=== PATIENT | female | born 1970 | race Caucasian/White ===

== ENCOUNTER 2016-12-27 08:48 | Emergency (ER) | payer MEDICAID ==
[~2016-12-27 08:48] MED LIST: ABILIFY10 MG PO; AMBIEN10 MG PO; ATIVAN2 MG PO; CLONAZEPAM2 MG/TAB PO; CYCLOBENZAPRINE10 MG PO; HYDROCODON-ACE1 EAC6 PO; HYDROCODONE-APA1 TAB PO; MINIPRESS 5 MG C5 MG PO; PROZAC20 MG PO; TRAZODONE HCL50 MG PO; TYLENOL W/CODEI1 TAB PO; VALIUM5 MG PO; ZOFRAN8 MG PO; ZOLOFT100 MG PO
== END 2016-12-27 10:38 | disposition home or self-care (01) ==
LOC: D.ER 08:48
DX: S80.01XA Contusion of right knee, initial encounter (principal); W19.XXXA Unspecified fall, initial encounter; Y93.89 Activity, other specified; Y92.019 Unspecified place in single-family (private) house as the place of occurrence of the external cause; F17.200 Nicotine dependence, unspecified, uncomplicated

== ENCOUNTER → 2017-03-10 10:16 | Outpatient (CLI) | payer MEDICAID ==
[2016-05-12 11:27] VITALS: BMI 35.0
== END | disposition home or self-care (01) ==
LOC: D.MRI 10:16
DX: S83.231A Complex tear of medial meniscus, current injury, right knee, initial encounter (principal)

== ENCOUNTER 2017-03-24 15:54 | Emergency (ER) | payer MEDICAID ==
[2016-05-12 11:27] VITALS: BMI 35.0
[2017-03-24 16:50] LABS: BASOPHILS 0.2 % (0-2); HEMATOCRIT 44.2 % (36.0-48.0); HEMOGLOBIN 15.2 g/dL (12-16); IMMATURE GRANULOCYTES 0.3 % (0-5); LYMPHOCYTES 29.6 % (15-50); MCH 31.7 pg (26.0-34.0); MCHC 34.4 g/dL (31.0-37.0); MCV 92.3 fL (80.0-100.0); MEAN PLATELET VOLUME 10.9 fL (7.4-10.4); MONOCYTES 7.3 % (2-11); NEUTROPHILS 61.6 % (40-80); PLATELET COUNT 234 10x3/uL (130-400); RBC 4.79 10x6/uL (4.00-5.40); RDW 13.4 % (11.5-14.5); WBC 9.3 10x3/uL (4.8-10.8)
[2017-03-24 17:04] LABS: ALBUMIN 3.7 g/dL (3.4-5.0); BILIRUBIN - TOTAL 0.37 mg/dL (0.2-1.3); CALCIUM 9.3 mg/dL (8.5-10.1); CARBON DIOXIDE 26.9 mmol/L (21.0-32.0); POTASSIUM - SERUM 3.9 mmol/L (3.5-5.1); PROTEIN - SERUM 7.8 g/dL (6.4-8.2)
== END 2017-03-24 17:41 | disposition home or self-care (01) ==
LOC: D.ER 15:54
PROVIDERS: Physician Assistant
DX: B37.0 Candidal stomatitis (principal); Z87.440 Personal history of urinary (tract) infections

== ENCOUNTER 2017-04-02 20:03 | Emergency (ER) | payer MEDICAID ==
[2016-05-12 11:27] VITALS: BMI 35.0
[2017-04-02 20:45] LABS: BASOPHILS 0.2 % (0-2); EOSINOPHILS 0.3 % (0-7); HEMATOCRIT 40.6 % (36.0-48.0); HEMOGLOBIN 13.8 g/dL (12-16); IMMATURE GRANULOCYTES 0.4 % (0-5); LYMPHOCYTES 15.5 % (15-50); MCH 31.1 pg (26.0-34.0); MCV 91.4 fL (80.0-100.0); MEAN PLATELET VOLUME 11.2 fL (7.4-10.4); MONOCYTES 7.8 % (2-11); NEUTROPHILS 75.8 % (40-80); PLATELET COUNT 252 10x3/uL (130-400); RBC 4.44 10x6/uL (4.00-5.40); RDW 13.4 % (11.5-14.5); WBC 13.3 10x3/uL (4.8-10.8)
[2017-04-02 21:00] LABS: ALBUMIN 3.6 g/dL (3.4-5.0); ANION GAP 19.4 mmol/L (8-16); BILIRUBIN - TOTAL 0.47 mg/dL (0.2-1.3); CALCIUM 9.6 mg/dL (8.5-10.1); CARBON DIOXIDE 22.3 mmol/L (21.0-32.0); CREATININE - SERUM 1.1 mg/dL (0.6-1.3); POTASSIUM - SERUM 3.7 mmol/L (3.5-5.1); PROTEIN - SERUM 6.9 g/dL (6.4-8.2)
== END 2017-04-02 21:48 | disposition home or self-care (01) ==
LOC: D.ER 20:03
PROVIDERS: Family Medicine
DX: T67.5XXA Heat exhaustion, unspecified, initial encounter (principal); X58.XXXA Exposure to other specified factors, initial encounter; Y93.89 Activity, other specified; Y92.89 Other specified places as the place of occurrence of the external cause; F41.9 Anxiety disorder, unspecified; F17.200 Nicotine dependence, unspecified, uncomplicated

== ENCOUNTER 2017-04-13 16:45 | Inpatient (IN) | payer MEDICAID ==
[~2017-04-13] VITALS: Ht 172.7 cm; Wt 120.2 kg
[2017-04-13 19:09] LABS: BASOPHILS 0.3 % (0-2); EOSINOPHILS 1.5 % (0-7); HEMATOCRIT 41.5 % (36.0-48.0); HEMOGLOBIN 14.1 g/dL (12-16); IMMATURE GRANULOCYTES 0.2 % (0-5); LYMPHOCYTES 32.4 % (15-50); MCH 31.6 pg (26.0-34.0); MEAN PLATELET VOLUME 11.4 fL (7.4-10.4); MONOCYTES 9.7 % (2-11); NEUTROPHILS 55.9 % (40-80); PLATELET COUNT 243 10x3/uL (130-400); RBC 4.46 10x6/uL (4.00-5.40); RDW 13.6 % (11.5-14.5); WBC 8.9 10x3/uL (4.8-10.8)
[2017-04-13 19:26] LABS: ALBUMIN 3.4 g/dL (3.4-5.0); ALKALINE PHOSPHATASE 106 U/L (46-116); ALT (SGPT) 122 U/L (10-68); CALC OSMOLALITY 277 mosm/kg (275-300); CALCIUM 9.2 mg/dL (8.5-10.1); CARBON DIOXIDE 25.6 mmol/L (21.0-32.0); CHLORIDE - SERUM 102 mmol/L (98-107); CREATININE - SERUM 0.8 mg/dL (0.6-1.3); GLUCOSE 120 mg/dL (74-106); POTASSIUM - SERUM 3.8 mmol/L (3.5-5.1); PROTEIN - SERUM 6.9 g/dL (6.4-8.2); SODIUM 139 mmol/L (136-145); eGFR NON AFRICAN AMERICAN 82 mL/min (90-120)
[2017-04-13 19:32] LABS: UREA NITROGEN 10 mg/dL (7-18)
[2017-04-13 20:11] LABS: HCG SERUM NEGATIVE (NEGATIVE)
[2017-04-13 20:30] LABS: APPEARANCE HAZY (CLEAR); BILIRUBIN NEGATIVE (NEGATIVE); COLOR YELLOW (YELLOW); GLUCOSE NEGATIVE (NEGATIVE); KETONE NEGATIVE (NEGATIVE); LEUKOCYTE ESTERASE 2+ (NEGATIVE); NITRITE POSITIVE (NEGATIVE); PROTEIN NEGATIVE (NEGATIVE); SPECIFIC GRAVITY 1.015 (1.005-1.020); UROBILINOGEN NORMAL (NORMAL)
[2017-04-13 20:32] LABS: BACTERIA MANY /hpf (NONE SEEN); EPITHELIAL CELLS 0-5 /hpf (0-5); RED CELLS - URINE 0-5 /hpf (0-5); WHITE CELLS - URINE >50 /hpf (0-5)
[2017-04-13 22:56] VITALS: BP 133/83; Ht 172.7 cm; Wt 120.2 kg
--- NOTE | 2017-04-13 22:56 | NUR ---
RECEIVED PT VIA WC FROM ED, PT TO ROOM 1278, TRANSFERS SELF TO BED WITH NO DIFFICULTY, ADMISSION ASSESSMENT, HISTORY, AND MED REC INITIATED, IV IN LEFT FA INTACT WITH NO REDNESS OR EDEMA INFUSING VIA PUMP NS AT 50ML/HR PER MD ORDERS, SEE EMAR, SCD'S APPLIED AND WORKING PROPERLY
--- NOTE | 2017-04-13 23:30 | NUR ---
ADMITTING ASSESSMENT AND HISTORY COMPLETED, PT WILL HAVE DAUGHTER CALL TREE SURGEON REGARDING PTS MEDS SHE TAKES AT HOME, POC DISCUSSED WITH PT, PT VERBALIZES UNDERSTANDING, FRESH H20 SERVED, SPOUSE TO ROOM, BEDDING PROVIDED, BED IN LOW POSITION, SIDE RAILS X 2, CALL LIGHT IN REACH
[2017-04-14] MEDS ORDERED: DEPAKOTE250 MG PO (00:02)
[2017-04-14] MEDS ORDERED: SEROQUEL100 MG PO (00:03)
[2017-04-14] MEDS ORDERED: IMITREX50 MG PO (00:03)
--- NOTE | 2017-04-14 00:09 | NUR ---
PT VISITNG WITH SPOUSE, INFORMED PT THAT DAUGHTER CALLED REGARDING MEDS, OBTAINED LAST DOSE FROM PT, PT DENIES NEEDS AT THIS TIME
--- NOTE | 2017-04-14 00:33 | NUR ---
PT ASSISTED TO BR. PT AMBULATED WITHOUT ASSISTANCE. PT VOIDED 425 ML CLOUDY YELLOW URINE. PT DENIES ANY FURTHER NEEDS AT THIS TIME. BED IN LOW POSITION, SIDE RAILS UP TIMES 2, CALL LIGHT AND PHONE IN REACH. SO AT PT BS FOR SUPPORT AND ASSISTANCE. WILL CONT TO MONITOR PT STATUS.
--- NOTE | 2017-04-14 02:33 | NUR ---
PT RESTING WITH EYES CLOSED, RESP QUIET, NO DISTRESS NOTED, LEFT UNDISTURBED AT THIS TIME, SPOUSE ASLEEP ON COUCH
[2017-04-14 04:39] VITALS: BP 117/64
--- NOTE | 2017-04-14 04:39 | NUR ---
PT AWAKE, SCD'S REMOVED, PT UP TO BR, GAIT STEADY, VOIDED 200 MLS OF CLOUDY URINE BY SELF, REPORTS BURNING WITH VOIDING, PT BACK TO BED, SCD'S RECONNECTED AND WORKING PROPERLY, PT C/O PAIN AND SLIGHT NAUSEA, ADM ZOFRAN AND MORPHINE SIVP PER MD ORDERS, SEE EMAR, PT DENIES FURTHER NEEDS, SPOUSE AT BEDSIDE
--- NOTE | 2017-04-14 05:06 | NUR ---
SCD'S REMOVED, PT UP TO BEDSIDE SCALE, WEIGHT OBTAINED, PT BACK TO BED, SCD'S APPLIED AND WORKING PROPERLY, PT REPORTS PAIN IS "A LITTLE" BETTER, DENIES NEEDS AT THIS TIME
--- NOTE | 2017-04-14 06:40 | NUR ---
SHIFT REPORT TO DAY SHIFT
--- NOTE | 2017-04-14 07:22 | NUR ---
DR PAULSON PAGED TO NOTIFY OF ORDERED CONSULT. RETURNS PAGE IMMEDIATELY. STATES SHE WILL SEE PT AFTER CLINIC HOURS TODAY.
--- NOTE | 2017-04-14 07:30 | NUR ---
PT CURRENTLY SITTING UP IN BED EATING BREAKFAST. PAIN AND NEEDS ASSESSED. PT REPORTS HAVING RT SIDE FLANK PAIN. UNDERSTANDS IT WILL BE 2 MORE HOURS BEFORE SHE MAY HAVE ADDITIONAL PAIN MEDICATION. DENIES NEEDS AT PRESENT. PT INFORMED THIS RN WILL RETURN TO ROOM FOR SHIFT ASSESSMENT AFTER PT HAS FINISHED BREAKFAST. DENIES NEEDS AT PRESENT.
--- NOTE | 2017-04-14 08:15 | NUR ---
THIS RN RETURNS TO BEDSIDE FOR SHIFT ASSESSMENT. PT CURRENTLY RESTING QUIETLY W/LIGHTS TURNED. PAIN AND NEEDS ASSESSED. PT REPORTS FLANK PAIN 04/30 AND NOW REPORTS MIGRAINE HEADACHE 06/30. PT REQUESTING DR CATALAN BE CALLED TO SEE IF HER HOME MEDS MAY BE RESUMMED. SHIFT ASSESSMENT COMPLETED. SEE FLOWSHEET. PT HAS EATEN 100% OF BREAKFAST SERVED. DECLINES OFFERS TO BRING HER ANYTHING ADDITIONALLY TO EAT OR DRINK. PT UPDATED THAT SHE MAY NOT HAVE DEMEROL IVP AGAIN FOR ANOTHER 2 HRS. PT VERBALIZES UNDERSTANDING AND IS AGREEABLE.SIG OTHER AT BEDSIDE.
--- NOTE | 2017-04-14 08:28 | NUR ---
DR ALAYNA HERNANDEZ FOR REQUEST TO RESUME HOME MEDS AT .
--- NOTE | 2017-04-14 08:32 | NUR ---
DR CATALAN RETURNS PAGE. INFORMED THAT PT IS A PT ON L&D. REPORTS HAVING A MIGRAINE AND REQUEST TO HAVE HER HOME MEDS RESUMMED. STATES "THAT WILL BE OK."
--- NOTE | 2017-04-14 10:38 | NUR ---
DR CATALAN TO UNIT TO SEE PT. ORDERS REC'D AND NOTED TO HAVE PICC LINE PLACED. CALL DR WINTER'S OFFICE FOR RESULTS OF URINE CULTURE THAT WAS PERFORMED THERE. DR COX TO CONSULT PT AND PRESCRIBE ANTIBIOTICS. STATES " FAR I'M CONCERNED, THE PT MAY BE DISCHARGED HOME AFTER PICC LINE IS PLACED AND DR CXO HAS PRESCRIBED ANTIBIOTIC THERAPY.
--- NOTE | 2017-04-14 10:50 | NUR ---
DR WINTER'S OFFICE CALLED TO REQUEST URINE CULTURE RESULTS. RELEASE OF INFORMATION OBTAINED FROM PT THEN FAXED TO OFFICE. RESULTS OBTAINED AND PLACED ON CHART FOR DR COX TO SEE.
--- NOTE | 2017-04-14 11:23 | NUR ---
PT RINGS CALL LIGHT. Estevan CAMILO RN TO ROOM. PT ASSITED TO BR. VOIDS APPROX 500ML CLOUDY,YELLOW URINE. PT BACK TO BED.
--- NOTE | 2017-04-14 11:49 | NUR ---
THIS RN TO BEDSIDE TO INFORM PT OF CONTINUED POC. PT VERBALIZES UNDERSTANDING AND IS AGREEABLE. PT DENIES QUESTIONS OTHER THAN REPORTING SHE HAS A CT SCAN SCHEDULED TOMORROW ON HER RT KNEE AND QUESTIONS IF IT MAY BE PERFORMED WHILE SHES AN INPATIENT SINCE SHE MORE THAN LIKELY WILL STILL BE ADMITTED IN THE AM. PT INFORMED THAT REPORT WILL BE GIVEN TO NURSE ON MED2. MOST LIKELY REQUEST CAN BE FULFILLED.
--- NOTE | 2017-04-14 12:12 | NUR ---
REPORT CALLED TO KRISTY ON MED 2. PT TRANSFERED VIA W/C TO ROOM 210.
[2017-04-14 12:40] VITALS: BP 137/82
--- NOTE | 2017-04-14 12:42 | NUR ---
RECIEVED PT ON FLOOR FROM [facility]OM[facility]S ACCOMPANIED BY HER , DAUGHTER, AND GRANDDAUGHTER VIA W/C. OFFERS NO COMPLAINTS. CALL LIGHT IN REACH, BED LOW, AND SIDE RAILS X2.
--- NOTE | 2017-04-14 13:25 | NUR ---
SITTING UP IN BED FAMILY AT BEDSIDE. ORIENTED PT TO ROOM, SCD'S ON AND IV NS STARTED. CALL LIGHT IN REACH, BED LOW, AND SIDE RAILS X1. WILL CONTINUE TO MONITOR.
[2017-04-14 16:00] VITALS: BP 123/50
[2017-04-14 19:00] VITALS: BP 151/84
--- NOTE | 2017-04-14 19:35 | NUR ---
PT IN BED WITH HOB UP FOR COMFORT. WATCHING TV. AT BEDSIDE. PT IS CONFIDENTIAL. CONTACT ISOALTION FOR MDRO IN URINE. PT HAS A CT AND PICC LINE ORDERED. DAILY WEIGHT. SCD'S. ACCURATE I&O. LEFT FA NS RUNNING AT 50ML/HR. NO O2. BEDREST WITH BATHROOM PRIVLEDGES. BED IN LOWEST POSITION AND CALL LIGHT WITHIN REACH.
--- NOTE | 2017-04-14 21:46 | NUR ---
UNHOOKED PT FROM IV AND SCD'S. PT TAKEN BY HOSPITAL STAFF DOWN TO CT.
--- NOTE | 2017-04-14 22:00 | NUR ---
PT BACK IN ROOM FROM CT.
[2017-04-15] VITALS: BP 108/39
--- NOTE | 2017-04-15 01:00 | NUR ---
PT IN BED WITH HOB UP FOR COMFORT. EYES CLOSED. CHEST RISING AND FALLING. AT BEDSIDE. BED IN LOWEST POSITION AND CALL LIGHT WITHIN REACH.
--- NOTE | 2017-04-15 03:18 | NUR ---
PT IN BED WITH HOB UP FOR COMFORT. EYES CLOSED. RESP. EVEN. BED IN LOWEST POSITION AND CALL LIGHT WITHIN REACH.
[2017-04-15 04:00] VITALS: BP 129/72
--- NOTE | 2017-04-15 06:00 | NUR ---
PT RESTING WITH NO DISTRESS. EYES CLOSED. RESPS EVEN/NONLABORED. FAMILY X 1 AT BEDSIDE. MONITOR AND CPOC.
--- NOTE | 2017-04-15 08:06 | NUR ---
AM ROUNDING- RECEIVED REPORT FROM VP PRODUCT MANAGEMENT NURSE SURY. PT IS CURRENTLY LAYING IN BED ON BACK WITH EYES CLOSED RESTING. IS AT BEDSIDE WITH EYES CLOSED RESTING. IN CONTACT ISOLATION FOR E.COLI IN URINE AND MDRO IN URINE PER REPORT. ON ROOM AIR. NO MONITOR. IV SEEN TO LEFT FOREARM WITH NS RUNNING AT 50CC. NO NEED AT CURRENT TIME. WILL CONTINUE TO MONITOR AND CONTINUE WITH PLAN OF CARE.
[2017-04-15 08:24] VITALS: BP 121/54
--- NOTE | 2017-04-15 10:59 | NUR ---
PAGED DR. CLAYTON REQUESTED BY MARIANNA IN XRAY REGARDING PT HAVING CT SCAN OF KNEE. MARIANNA STATES SHE HAD CT SCHEDULED FOR OUTPATIENT FOR CT OF KNEE TODAY. WILL AWAIT CALLBACK AND CONTINUE TO MONITOR.
[2017-04-15 12:12] VITALS: BP 94/56
--- NOTE | 2017-04-15 14:33 | NUR ---
CRICKET FROM CT CALLED TO SEE ABOUT IF WE FOUND OUT FROM DR. CLAYTON ABOUT CT OF PTS KNEE TODAY. I INFORMED CRICKET THAT DR. CLAYTON WAS PAGED AND THERE HAS NOT BEEN A CALL BACK YET. CRICKET STATES OK.
--- NOTE | 2017-04-15 15:10 | NUR ---
1430- PT IS CURRENTLY LAYING IN BED ON BACK WITH EYES OPEN RESTING. FAMILY MEMBERS ARE AT BEDSIDE. PT DENIES ANY NEED AT CURRENT TIME. WILL CONTINUE TO MONITOR.
[2017-04-15 16:27] VITALS: BP 119/70
--- NOTE | 2017-04-15 18:27 | NUR ---
PT IS CURRENTLY LAYING IN BED ON BACK WITH EYES OPEN RESTING. PT DENIES ANY NEED AT CURRENT TIME. WILL CONTINUE TO MONITOR.
[2017-04-15 19:00] VITALS: BP 116/53
--- NOTE | 2017-04-15 19:00 | NUR ---
9180- YO ARMSTRONG, VASCULAR ACCESS NURSE PLACED MIDLINE CATHETER IN PT TO LEFT UPPER ARM.
--- NOTE | 2017-04-15 19:50 | NUR ---
FAMILY AT BEDSIDE TALK TO PT.
[2017-04-16] VITALS: BP 114/61
--- NOTE | 2017-04-16 04:03 | NUR ---
REST QUIETLY IN BED, EYE CLOSE, BED LOW, CALL LIGHT WITHIN REACH.
--- NOTE | 2017-04-16 07:45 | NUR ---
AM ROUNDS COMPLETED. COMMUNICATION BOARD FILLED OUT. PT RESTING QUIETLY IN BED WITH EYES CLOSED. RR NONLABORED. CL IN REACH, BED IN LOWEST, SIDE RAILS X2. WILL CHART CHECK AND CPOC.
[2017-04-16 09:18] VITALS: BP 124/84
[2017-04-16 12:35] VITALS: BP 94/56
--- NOTE | 2017-04-16 13:24 | NUR ---
TEACHING DONE TO PT ABOUT CLEAN CATCH SPECIMEN FOR NEW UA AND CULTURE. PT VOIDED AND CLEANSED SELF CORRECTLY PRIOR TO URINATION. SPECIMEN COLLECTED AND BEING SENT TO LAB. NO FURTHER NEEDS AT THIS TIME.
[2017-04-16 13:38] LABS: BASOPHILS 0.3 % (0-2); EOSINOPHILS 2.8 % (0-7); HEMATOCRIT 40.1 % (36.0-48.0); HEMOGLOBIN 13.4 g/dL (12-16); IMMATURE GRANULOCYTES 0.3 % (0-5); LYMPHOCYTES 34.4 % (15-50); MCH 31.2 pg (26.0-34.0); MCHC 33.4 g/dL (31.0-37.0); MCV 93.5 fL (80.0-100.0); MEAN PLATELET VOLUME 11.4 fL (7.4-10.4); MONOCYTES 5.7 % (2-11); NEUTROPHILS 56.5 % (40-80); PLATELET COUNT 242 10x3/uL (130-400); RBC 4.29 10x6/uL (4.00-5.40); RDW 13.8 % (11.5-14.5)
[2017-04-16 13:59] LABS: CALCIUM 8.3 mg/dL (8.5-10.1); CARBON DIOXIDE 24.9 mmol/L (21.0-32.0); CREATININE - SERUM 0.9 mg/dL (0.6-1.3); POTASSIUM - SERUM 3.9 mmol/L (3.5-5.1)
[2017-04-16 14:53] LABS: APPEARANCE CLEAR (CLEAR); BILIRUBIN NEGATIVE (NEGATIVE); COLOR YELLOW (YELLOW); GLUCOSE NEGATIVE (NEGATIVE); KETONE NEGATIVE (NEGATIVE); LEUKOCYTE ESTERASE TRACE (NEGATIVE); NITRITE NEGATIVE (NEGATIVE); PROTEIN NEGATIVE (NEGATIVE); SPECIFIC GRAVITY 1.015 (1.005-1.020); UROBILINOGEN NORMAL (NORMAL)
[2017-04-16 14:54] LABS: EPITHELIAL CELLS 0-5 /hpf (0-5)
[2017-04-16 16:27] VITALS: BP 97/61
--- NOTE | 2017-04-16 19:30 | NUR ---
REPORT RECEIVED AND CARE ASSUMED. SITTING ON SIDE OF BED, NO DISTRESS NOTED. ASSESSMENT COMPLETED PER FLOW SHEET. BED IN LOWEST POSITION, SR X2 UP, AND CALL LIGHT IN EASY REACH.
--- NOTE | 2017-04-16 21:00 | NUR ---
MORPHINE 4 MG IVP GIVEN FOR BILATERAL FLANK PAIN AT LEVEL #9.
--- NOTE | 2017-04-16 21:30 | NUR ---
CONSENT FOR HEART CATH SIGNED.
[2017-04-17] VITALS: BP 102/69
[2017-04-17 04:00] VITALS: BP 107/61
[2017-04-17 05:20] LABS: HEMATOCRIT 38.6 % (36.0-48.0); HEMOGLOBIN 13.1 g/dL (12-16); LYMPHOCYTES 31.7 % (15-50); MCH 30.9 pg (26.0-34.0); MCHC 33.9 g/dL (31.0-37.0); MEAN PLATELET VOLUME 11.2 fL (7.4-10.4); NEUTROPHILS 59.6 % (40-80); PLATELET COUNT 248 10x3/uL (130-400); RBC 4.24 10x6/uL (4.00-5.40); RDW 13.2 % (11.5-14.5); WBC 8.6 10x3/uL (4.8-10.8)
[2017-04-17 05:33] LABS: ANION GAP 15.2 mmol/L (8-16); CALCIUM 8.4 mg/dL (8.5-10.1); CARBON DIOXIDE 24.9 mmol/L (21.0-32.0); POTASSIUM - SERUM 4.1 mmol/L (3.5-5.1)
[2017-04-17 07:31] VITALS: BP 95/51
--- NOTE | 2017-04-17 07:59 | NUR ---
0715- AM ROUNDING- RECEIVED REPORT FROM DIVIDEND DEPOSIT ENTRY CLERK NURSE YO. PT IS CURRENLTY LAYING IN BED ON LEFT SIDE WITH EYES CLOSED RESTING. GUEST IS AT BEDSIDE. IN CONTACT ISOLATION FOR E.COLI IN URINE. ON ROOM AIR. NO MONITOR. IV SEEN TO LEFT UPPER ARM MIDLINE WITH 1/2NS WITH 20K+ RUNNING AT 75CC. NO NEED AT CURRENT TIME. WILL CONTINUE TO MONITOR AND CONTINUE WITH PLAN OF CARE.
--- NOTE | 2017-04-17 09:30 | NUR ---
THIS NURSE ( WELL ALL THE OTHER STAFF AND FAMILY MEMBERS THAT WERE AROUND) WITNESSED THE PATIENTS FAMILY MEMBER AT THE DESK CHEWING OUT THE NURSE, JAMIR SIEGEL, IN REGARDS TO PATIENT NOT GETTING HER IV MORPHINE. CHRISTAL TRIED MULTIPLE TIMES TO EXPLAINE THAT WITH HER SBP IN THE LOW 90'S IT WOULD NOT BE SAFE TO GIVE THE PAIN MEDICATION. THIS PARTICULAR FAMILY MEMBER HAS EXPRESSED REPETITIVELY THAT HE DID NOT CARE. STATED THAT HER BLOOD PRESSURE IS ALWAYS LOW AND SHE NEEDED HER MEDICATIONS. THE NURSE PULLED UP AND REVIEWED THE PATIENTS BLOOD PRESSURES WITH THIS FAMILY MEMBER AND HE WAS BECOMING MORE AND MORE VERBAL ABOUT HOW HE DID NOT CARE AND HE WANTED HER TO HAVE HER MORPHINE. HE EVEN STATED SEVERAL TIMES THAT SHE NEEDED TO CALL DR CATALAN AND HE WOULD TELL HER TO GIVE IT. HE WAS UNWILLING TO LISTEN TO REASON. THIS PATIENT WAS ALSO JUST GIVEN TYLENOL #3 LESS THAN AN HOUR AGO (0856) AND FLEXERIL (0855). JAMIR GRIMES WENT IN TO DISCUSS POLICY AND PATIENT SAFETY WITH THEM. JAMIR XIONG DAIRY TRUCK DRIVER HAS HAD TO BE CALLED TO ASSIST WITH ISSUE.
--- NOTE | 2017-04-17 10:04 | NUR ---
TYRESE PARK, UNIT MANGER IN PTS ROOM SPEAKING TO PT AND PTS . PREVIOUS NURSES NOTE STATES SITUATION REGARDING THIS NURSE AND PTS REGARDING PTS PAIN MEDICATION WITH SBP OF LESS THAN 100.
[2017-04-17 12:39] VITALS: BP 96/60
[2017-04-17] MEDS ORDERED: ZOSYN 3.3753.375 G1 IV (14:19)
--- NOTE | 2017-04-17 15:24 | NUR ---
Patient Name: JACINTA CROCKER Admission Status: ER Accout number: [id number] Admission Date: 04-15-2017 : 1970 Admission Diagnosis:URINARY TRACT INFECTION, SITE NOT SPECIFIED Attending: ALAYNA Current LOS: 2 Anticipated DC Date: 04-17-2017 Planned Disposition: Home with Infusion Therapy Services Primary [place] PR[place] [employer] AMY PLANNED EXTERNAL PROVIDER: [facility] Discharge Planning Comments: * Is the patient Alert and Oriented? Yes 0 * How many steps to enter\exit or inside your home? 5 0 * PCP DR. CATALAN 0 * Pharmacy [facility] IN [place] 0 * Preadmission Environment Home with Family 0 * ADLs Independent 0 * Equipment None 0 * Other Equipment NO MEDICAL EQUIPMENT PROVIDER PREFERENCE HAS USED [facility] IN THE PAST FOR INFUSION SERVICES 0 * List name and contact numbers for known caregivers / representatives who currently or will assist patient after discharge: CHRIST SYLVIE, SIGNIFICANT OTHER, 0 * Community resources currently utilized None 0 * Please name any agencies selected above. NONE 0 * Additional services required to return to the preadmission environment? No 0 * Can the patient safely return to the preadmission environment? Yes 0 * Has this patient been hospitalized within the prior 30 days at any hospital? No 0 CM RECEIVED ORDER FOR HOME IV INFUSION. ERICA REES INFORMED CM THAT PT WILL NOT REQUIRE HOME HEALTH SERVICES. CM MET WITH PT AND FAMILY IN ROOM TO DISCUSS DISCHARGE PLANNING AND NEEDS. PT REPORTS LIVING AT HOME INDEPENDENTLY WITH HER SPOUSE AND FAMILY. PT HAS NO MEDICAL EQUIPMENT AND NO OUTSIDE SERVICES ASSISTING IN THE HOME. CM DISCUSSED AVAILABILITY OF HOME HEALTH, REHAB SERVICES AND MEDICAL EQUIPMENT. PT WOULD LIKE TO GO HOME TODAY WITH IV INFUSION, HAS USED HOME [facility] IN THE PAST AND WOULD LIKE TO ARRANGE WITH THEM IF POSSIBLE, FAMILY TO BE HOME FOR DELIVERY TODAY AND DAUGHTER IS TRAINED TO PROVIDE INFUSION SERVICES WITH NO NEED FOR HOME HEALTH. SPOUSE TO TRANSPORT HOME TODAY FOR DISCHARGE. CM CALLED PT'S SEO ENGINEER CHINEDU OLIVA, , LEFT MESSAGE NOTIFYING OF NEED OF HOME IV INFUSION WITH DISCHARGE TODAY AFTER 1630 INFUSION. CM CALLED HOME [facility], , SPOKE TO DARCY WHO REPORTED THAT [facility]OSYN SHOULD BE NO PROBLEM TO HAVE DELIVERED TODAY PRIOR TO THE NEXT HOME INFUSION DUE AT 0030 HOURS. CM FAXED REFERRAL TO [facility] AT [phone]. PT NOTIFIED. BEDSIDE NURSE NOTIFIED. [facility] TO ARRANGE HOME DELIVERY OF MEDICATION TO PT'S FAMILY AT HOME TODAY SO THAT PT CAN DISCHARGE HOME AFTER HER 1630 INFUSION IN HOSPTIAL. [facility] TO CONTACT PT AND NOTIFY CM OF HOME DELIVERY ARRANGEMENT CONFIRMATION AND SCHEDULED TIME. Protective Signal Operator: Maciel Wilcox
[2017-04-17 15:46] VITALS: BP 138/73
--- NOTE | 2017-04-17 16:49 | NUR ---
CM CALLED [facility], , WAS INFORMED BY DEREK THAT PT'S MEDICATIONS HAVE BEEN APPROVED AND ARE BEING MIXED FOR HOME DELIVERY TODAY BETWEEN 1800 AND 1830 HOURS. CM NOTIFIED PT AND SPOUSE, PT REPORTS HER DAUGHTER IS HOME TO RECEIVE THE MEDICATIONS, NO FURHTER DISCHARGE NEEDS IDENTIFIED. BEDSIDE NURSE NOTIFIED. RADHA TONY, CASE MANAGEMENT
--- NOTE | 2017-04-17 18:13 | NUR ---
PT IS CURRENTLY SITTING UP IN BED LAYING ON BACK WITH EYES OPEN RESTING. IS AT BEDSIDE. WILL CONTINUE TO MONITOR.
--- NOTE | 2017-04-17 18:15 | NUR ---
1800- D/C INSTRUCTIONS EXPLAINED TO PT. D/C PAPERWORK SIGNED BY PT AND PLACED IN CHART. PRESCRIPTION FOR PAIN MEDICAITON GIVEN TO PT. PT IS AWAITING IV ANTIBIOTIC TO GET DONE (1929). WILL PASS THIS ALONG IN REPORT.
--- NOTE | 2017-04-17 19:33 | NUR ---
IV AB COMPLETED. DC PAPERWORK SIGNED WITH DAY NURSE. PT STATED UNDERSTINDING OF PAPERWORK. LAC MIDLINE FLUSHED WITH 10CC OF NS. SWAB CAP PLACED ON PORT. TO POV VIA W/C. NO DISTRESS NOTED.
== END 2017-04-17 19:35 | disposition home or self-care (01) | DRG 690 ==
LOC: OBSVTIME → D.ER 16:45 → OBSVTIME 22:08 → D.LD 22:08 → OBSVTIME 22:12 → D.M2 22:12 → D.ER 22:12 → D.M2 04-14 12:34
PROVIDERS: Emergency Medicine; Student in an Organized Health Care Education/Training Program; ADMIT Family Medicine
DX: N10 Acute pyelonephritis (principal); Z16.24 Resistance to multiple antibiotics; B96.20 Unspecified Escherichia coli [E. coli] as the cause of diseases classified elsewhere; Z87.891 Personal history of nicotine dependence; F41.9 Anxiety disorder, unspecified; F32.9 Major depressive disorder, single episode, unspecified; K58.9 Irritable bowel syndrome, unspecified

== ENCOUNTER 2017-04-20 20:51 | Emergency (ER) | payer MEDICAID ==
[2017-04-13 22:56] VITALS: BMI 39.7
[~2017-04-20 20:51] MED LIST changes: +DEPAKOTE250 MG PO; +IMITREX50 MG PO; +SEROQUEL100 MG PO; +ZOSYN 3.3753.375 G1 IV
== END 2017-04-20 21:00 | disposition left against medical advice (07) ==
LOC: D.ER 20:51
DX: Z02.9 Encounter for administrative examinations, unspecified (principal)

== ENCOUNTER 2017-04-25 17:04 | Emergency (ER) | payer MEDICAID ==
[2017-04-13 22:56] VITALS: BMI 39.7
== END 2017-04-25 18:18 | disposition home or self-care (01) ==
LOC: D.ER 17:04
DX: T82.838A Hemorrhage due to vascular prosthetic devices, implants and grafts, initial encounter (principal)

== ENCOUNTER 2017-05-07 15:44 | Emergency (ER) | payer MEDICAID ==
[2017-04-13 22:56] VITALS: BMI 39.7
[2017-05-07 16:24] LABS: BASOPHILS 0.5 % (0-2); EOSINOPHILS 4.3 % (0-7); HEMATOCRIT 41.3 % (36.0-48.0); IMMATURE GRANULOCYTES 0.2 % (0-5); LYMPHOCYTES 34.1 % (15-50); MCH 31.2 pg (26.0-34.0); MCHC 33.9 g/dL (31.0-37.0); MEAN PLATELET VOLUME 11.4 fL (7.4-10.4); MONOCYTES 8.3 % (2-11); NEUTROPHILS 52.6 % (40-80); PLATELET COUNT 256 10x3/uL (130-400); RBC 4.49 10x6/uL (4.00-5.40); RDW 13.5 % (11.5-14.5); WBC 8.8 10x3/uL (4.8-10.8)
[2017-05-07 16:38] LABS: ALBUMIN 3.4 g/dL (3.4-5.0); ANION GAP 10.9 mmol/L (8-16); BILIRUBIN - TOTAL 0.17 mg/dL (0.2-1.3); CALCIUM 8.8 mg/dL (8.5-10.1); CARBON DIOXIDE 27.8 mmol/L (21.0-32.0); POTASSIUM - SERUM 3.7 mmol/L (3.5-5.1); PROTEIN - SERUM 7.1 g/dL (6.4-8.2)
== END 2017-05-07 17:05 | disposition home or self-care (01) ==
LOC: D.ER 15:44
PROVIDERS: Emergency Medicine
DX: M54.12 Radiculopathy, cervical region (principal)

== ENCOUNTER → 2017-05-19 | Emergency (ER) | payer MEDICAID ==
[2017-04-13 22:56] VITALS: BMI 39.7
== END | disposition home or self-care (01) ==
LOC: D.ER 13:02
DX: S40.012A Contusion of left shoulder, initial encounter (principal); Y04.2XXA Assault by strike against or bumped into by another person, initial encounter; Y93.89 Activity, other specified; Y92.89 Other specified places as the place of occurrence of the external cause; M54.2 Cervicalgia

== ENCOUNTER → 2017-05-29 15:31 | Outpatient (CLI) | payer MEDICAID ==
[2017-04-13 22:56] VITALS: BMI 39.7
== END | disposition home or self-care (01) ==
LOC: D.CT 15:31
DX: N39.0 Urinary tract infection, site not specified (principal)

== ENCOUNTER 2018-01-04 14:26 | Emergency (ER) | payer MEDICAID ==
[2017-04-13 22:56] VITALS: BMI 39.7
== END 2018-01-04 17:09 | disposition home or self-care (01) ==
LOC: D.ER 14:26
DX: S70.01XA Contusion of right hip, initial encounter (principal); W01.0XXA Fall on same level from slipping, tripping and stumbling without subsequent striking against object, initial encounter; Y93.89 Activity, other specified; Y92.019 Unspecified place in single-family (private) house as the place of occurrence of the external cause; M25.551 Pain in right hip; M79.604 Pain in right leg

== ENCOUNTER 2018-01-16 19:36 | Emergency (ER) | payer MEDICAID ==
[2017-04-13 22:56] VITALS: BMI 39.7
== END 2018-01-16 21:52 | disposition home or self-care (01) ==
LOC: D.ER 19:36
DX: S93.401A Sprain of unspecified ligament of right ankle, initial encounter (principal); W19.XXXA Unspecified fall, initial encounter; Y93.89 Activity, other specified; Y92.019 Unspecified place in single-family (private) house as the place of occurrence of the external cause; M25.471 Effusion, right ankle

== ENCOUNTER 2018-01-31 14:32 | Emergency (ER) | payer MEDICAID ==
[2017-04-13 22:56] VITALS: BMI 39.7
[2018-01-31 15:28] LABS: APPEARANCE HAZY (CLEAR); BILIRUBIN NEGATIVE (NEGATIVE); COLOR YELLOW (YELLOW); GLUCOSE NEGATIVE (NEGATIVE); KETONE NEGATIVE (NEGATIVE); NITRITE NEGATIVE (NEGATIVE); PROTEIN NEGATIVE (NEGATIVE); UROBILINOGEN NORMAL (NORMAL)
[2018-01-31 15:36] LABS: RED CELLS - URINE 0-5 /hpf (0-5); WHITE CELLS - URINE >50 /hpf (0-5)
[2018-01-31 15:37] LABS: BACTERIA MODERATE /hpf (NONE SEEN); EPITHELIAL CELLS OCC /hpf (0-5)
== END 2018-01-31 16:31 | disposition home or self-care (01) ==
LOC: D.ER 14:32
PROVIDERS: Family Medicine
DX: N39.0 Urinary tract infection, site not specified (principal); R33.9 Retention of urine, unspecified

== ENCOUNTER 2018-07-18 18:39 | Emergency (ER) | payer MEDICAID ==
[~2018-07-18] VITALS: Ht 172.7 cm; Wt 101.4 kg
[2018-07-18 18:46] VITALS: Ht 172.7 cm; Wt 101.4 kg
[2018-07-18] MEDS ORDERED: LOMOTIL 2.5-0.1 EAC1 PO (18:48)
[2018-07-18] MEDS ORDERED: VALIUM10 MG PO (18:48)
[2018-07-18 19:14] LABS: BASOPHILS 0.2 % (0-2); EOSINOPHILS 1.9 % (0-7); HEMATOCRIT 43.7 % (36.0-48.0); HEMOGLOBIN 14.8 g/dL (12-16); IMMATURE GRANULOCYTES 0.3 % (0-5); LYMPHOCYTES 32.4 % (15-50); MCH 31.4 pg (26.0-34.0); MCHC 33.9 g/dL (31.0-37.0); MCV 92.8 fL (80.0-100.0); MEAN PLATELET VOLUME 11.6 fL (7.4-10.4); MONOCYTES 6.7 % (2-11); NEUTROPHILS 58.5 % (40-80); PLATELET COUNT 249 10x3/uL (130-400); RBC 4.71 10x6/uL (4.00-5.40); RDW 13.7 % (11.5-14.5); WBC 10.5 10x3/uL (4.8-10.8)
[2018-07-18 19:20] LABS: APPEARANCE CLEAR (CLEAR); BILIRUBIN NEGATIVE (NEGATIVE); COLOR YELLOW (YELLOW); GLUCOSE NEGATIVE (NEGATIVE); KETONE NEGATIVE (NEGATIVE); NITRITE NEGATIVE (NEGATIVE); PROTEIN NEGATIVE (NEGATIVE); SPECIFIC GRAVITY 1.015 (1.005-1.020); UROBILINOGEN NORMAL (NORMAL)
[2018-07-18 19:31] LABS: ALBUMIN 3.9 g/dL (3.4-5.0); ALKALINE PHOSPHATASE 107 U/L (46-116); ALT (SGPT) 36 U/L (10-68); BILIRUBIN - TOTAL 0.15 mg/dL (0.2-1.3); CALC OSMOLALITY 284 mosm/kg (275-300); CARBON DIOXIDE 21.6 mmol/L (21.0-32.0); CHLORIDE - SERUM 107 mmol/L (98-107); CREATININE - SERUM 1.1 mg/dL (0.6-1.3); GLUCOSE 120 mg/dL (74-106); POTASSIUM - SERUM 3.5 mmol/L (3.5-5.1); PROTEIN - SERUM 7.4 g/dL (6.4-8.2); SODIUM 142 mmol/L (136-145); UREA NITROGEN 14 mg/dL (7-18); eGFR NON AFRICAN AMERICAN 56 mL/min (90-120)
[2018-07-18 19:42] LABS: CKMB 4.3 U/L (0.0-3.6); CREATINE KINASE 267 UL (21-215)
[2018-07-18 22:10] VITALS: BP 108/51
== END 2018-07-18 22:12 | disposition home or self-care (01) ==
LOC: D.ER 18:39
PROVIDERS: Emergency Medicine
DX: S20.212A Contusion of left front wall of thorax, initial encounter (principal); W18.30XA Fall on same level, unspecified, initial encounter; Y93.89 Activity, other specified; Y92.019 Unspecified place in single-family (private) house as the place of occurrence of the external cause; S16.1XXA Strain of muscle, fascia and tendon at neck level, initial encounter; R51 Headache

== ENCOUNTER 2018-11-05 02:52 | Emergency (ER) | payer MEDICAID ==
[~2018-11-05] VITALS: Ht 172.7 cm; Wt 101.4 kg
[~2018-11-05 02:52] MED LIST changes: +LOMOTIL 2.5-0.1 EAC1 PO; +VALIUM10 MG PO
[2018-11-05 02:56] VITALS: Ht 172.7 cm; Wt 101.4 kg
[2018-11-05 04:05] VITALS: BP 135/80
== END 2018-11-05 04:05 | disposition home or self-care (01) ==
LOC: D.ER 02:52
DX: S50.12XA Contusion of left forearm, initial encounter (principal); W18.31XA Fall on same level due to stepping on an object, initial encounter; Y93.89 Activity, other specified; Y92.019 Unspecified place in single-family (private) house as the place of occurrence of the external cause

== ENCOUNTER 2019-01-14 07:15 | Day surgery (SDC) | payer MEDICAID ==
[2019-01-13 13:18] LABS: HEMATOCRIT 42.7 % (36.0-48.0); HEMOGLOBIN 14.7 g/dL (12-16); MCH 30.4 pg (26.0-34.0); MCHC 34.4 g/dL (31.0-37.0); MCV 88.2 fL (80.0-100.0); RBC 4.84 10x6/uL (4.00-5.40); RDW 13.4 % (11.5-14.5); WBC 9.8 10x3/uL (4.8-10.8)
[~2019-01-14 07:15] MED LIST changes: +EMGALITY SQ; +LAMOTRIGINE PO; +LITHIUM CI8 MEQ/5 ML; +PRINIVIL10 MG
[2019-01-14 09:13] VITALS: BP 120/70; BMI 35.6
[2019-01-14] MEDS ORDERED: PERCOCET 7.5/321 TAB PO (12:57)
--- NOTE | 2019-01-14 14:09 | OP ---
PATIENT NAME: JACINTA CROCKER MEDICAL RECORD: [id number] :70 LOCATION:[email or web address] ADMISSION DATE: SURGEON: ARNALDO BLAS DO DATE OF OPERATION: 01/14/2019 PROCEDURE PERFORMED: Right knee arthroscopy with medial meniscal repair and partial lateral meniscectomy. PREOPERATIVE DIAGNOSIS: Right knee meniscal tear, medial meniscus. POSTOPERATIVE DIAGNOSES: Right knee medial meniscus tear and lateral meniscal tear. INDICATIONS: Ms. Crocker is a 48-year-old female who presented to my office with right knee pain, popping, catching, and locking. She had a meniscal tear in the past and said it felt similar. She was unable to get an MRI due to, I believe, a spinal pain stimulator and due to her symptoms and her x-rays did not show really any arthritis and she had before. She had positive Raymundo's and bounce home test. I told her we would do the scope and look at meniscus and take it out or repair it depending on where the tear was. She was okay with that plan and signed the consent. She is aware of the risks including infection, bleeding, damage to nerve and vessel, need for further surgery, blood clots, and even and signed the consent. SURGEON: Arnaldo Blas DO DESCRIPTION OF PROCEDURE: The patient was taken to the operative suite, laid in supine position. Right lower extremity was prepped and draped in sterile fashion after she was given general anesthetic and LMA placed. She was given a gram of vancomycin preoperatively. After the right lower extremity was prepped and draped in sterile fashion, a timeout was performed and everyone was in agreement with the correct side, site, patient and procedure. We then started the procedure with lateral portal, it was established with an 11-blade scalpel and then the trocar was entered into the knee in the suprapatellar pouch, no loose body was seen in that or the medial and lateral gutters. The medial compartment was then inspected and entered and a medial portal was established with an 18-gauge spinal needle and 11-blade scalpel. Probe was brought in through the portal and the medial meniscus was probed. There was a very peripheral tear in the medial meniscus on the red-red zone and that would allow the meniscus to sublux into the joint. After this was noted, we then inspected the ACL, which was in good position and taut. The lateral compartment was inspected with the leg [id number] and there was a very involved tear of the anterior horn of the lateral meniscus. The shaver was brought in through the medial portal and this was cleaned up back to a stable position where it was no longer torn or subluxing into the joint. After that was done, the scope was switched from the lateral portal to the medial portal and the Fast-Fix device was brought into the lateral portal to the tear and suture of the Fast-Fix was used through the tear of the medial meniscus about 5 mm apart and pulled taut and then a cutter was brought in and then cut the suture. This allowed for the meniscus to cinch down and did not sublux any longer and the tear was repaired. The tourniquet was not inflated during the surgery. Water was turned off, suction turned on. All instruments were removed from the knee and portal sites were closed with 4-0 Monocryl in inverted interrupted fashion and Steri-Strips placed on that, 4 x 4s, ABD, Webril and Tanvir wrap were then placed on the knee. NEGRITA hose stocking placed on the knee and the patient was placed in a knee OPERATIVE REPORT [id number] JACINTA CROCKER immobilizer, awakened and taken to recovery room in stable condition. BLOOD LOSS: Minimal. COMPLICATIONS: None. TRANSINT:[id number] Voice Confirmation ID: [id number] DOCUMENT ID: [id number] ARNALDO BLAS DO at 1409 CC: [id number] DICTATION DATE: 01/14/19 1303 TAMALE MAKER: 01/14/19 1321 [facility] [address] [place] [id number]
== END 2019-01-14 15:00 | disposition home or self-care (01) ==
LOC: D.OPS 07:15
PROVIDERS: Anesthesiology; ATTEND Orthopaedic Surgery
DX: S83.241A Other tear of medial meniscus, current injury, right knee, initial encounter (principal); S83.281A Other tear of lateral meniscus, current injury, right knee, initial encounter

== ENCOUNTER → 2019-02-18 11:03 | Outpatient (CLI) | payer MEDICAID ==
[~2019-02-18 11:03] MED LIST changes: +HYDROCODON-ACE1 EA10 PO; +LITHIUM CARBON300 MG PO; +PERCOCET 7.5/321 TAB PO
== END | disposition home or self-care (01) ==
LOC: D.CT 11:03
PROVIDERS: ATTEND Orthopaedic Surgery
DX: M25.561 Pain in right knee (principal)

== ENCOUNTER 2019-03-13 15:39 | Emergency (ER) | payer MEDICAID ==
[~2019-03-13] VITALS: Ht 172.7 cm; Wt 105.5 kg
[~2019-03-13 15:39] MED LIST changes: -HYDROCODON-ACE1 EA10 PO; -LITHIUM CARBON300 MG PO
[2019-03-13 15:40] VITALS: Ht 172.7 cm; Wt 105.5 kg
[2019-03-13] MEDS ORDERED: HYDROCODON-ACE1 EA10 PO (16:23)
[2019-03-13 16:50] VITALS: BP 99/64
== END 2019-03-13 17:12 | disposition home or self-care (01) ==
LOC: D.ER 15:39
DX: S89.91XA Unspecified injury of right lower leg, initial encounter (principal); W19.XXXA Unspecified fall, initial encounter; I10 Essential (primary) hypertension; F32.9 Major depressive disorder, single episode, unspecified; F41.9 Anxiety disorder, unspecified

== ENCOUNTER 2019-03-28 03:46 | Emergency (ER) | payer MEDICAID ==
[~2019-03-28] VITALS: Ht 172.7 cm; Wt 99.8 kg
[~2019-03-28 03:46] MED LIST changes: +HYDROCODON-ACE1 EA10 PO
[2019-03-28 03:52] VITALS: Ht 172.7 cm; Wt 99.8 kg
[2019-03-28] MEDS ORDERED: LITHIUM CARBON300 MG PO (03:55)
[2019-03-28 04:46] LABS: BASOPHILS 0.1 % (0-2); EOSINOPHILS 1.7 % (0-7); HEMOGLOBIN 13.8 g/dL (12-16); IMMATURE GRANULOCYTES 0.2 % (0-5); LYMPHOCYTES 22.7 % (15-50); MCH 29.8 pg (26.0-34.0); MCHC 33.7 g/dL (31.0-37.0); MCV 88.6 fL (80.0-100.0); MEAN PLATELET VOLUME 10.9 fL (7.4-10.4); NEUTROPHILS 68.3 % (40-80); RBC 4.63 10x6/uL (4.00-5.40); RDW 13.7 % (11.5-14.5); WBC 9.9 10x3/uL (4.8-10.8)
[2019-03-28 04:48] LABS: PLATELET COUNT 284 10x3/uL (130-400)
[2019-03-28 04:59] LABS: ALBUMIN 3.7 g/dL (3.4-5.0); ANION GAP 12.2 mmol/L (8-16); BILIRUBIN - TOTAL 0.31 mg/dL (0.2-1.3); CALCIUM 9.1 mg/dL (8.5-10.1); CARBON DIOXIDE 26.7 mmol/L (21.0-32.0); CREATININE - SERUM 0.9 mg/dL (0.6-1.3); MAGNESIUM - SERUM 2.1 mg/dL (1.8-2.4); POTASSIUM - SERUM 3.9 mmol/L (3.5-5.1); PROTEIN - SERUM 7.2 g/dL (6.4-8.2)
[2019-03-28 06:58] VITALS: BP 132/87
== END 2019-03-28 06:58 | disposition home or self-care (01) ==
LOC: D.ER 03:46
PROVIDERS: Family Medicine
DX: R19.7 Diarrhea, unspecified (principal)

== ENCOUNTER 2019-04-01 07:07 | Day surgery (SDC) | payer MEDICAID ==
[~2019-04-01] VITALS: Ht 172.7 cm; Wt 104.3 kg
[~2019-04-01 07:07] MED LIST changes: +LITHIUM CARBON300 MG PO
[2019-04-01 09:22] VITALS: BP 102/38; Ht 172.7 cm; Wt 104.3 kg
[2019-04-01 09:22] LABS: HEMATOCRIT 42.7 % (36.0-48.0); HEMOGLOBIN 14.8 g/dL (12-16); MCH 30.6 pg (26.0-34.0); MCHC 34.7 g/dL (31.0-37.0); MCV 88.2 fL (80.0-100.0); MEAN PLATELET VOLUME 11.4 fL (7.4-10.4); RBC 4.84 10x6/uL (4.00-5.40); RDW 13.8 % (11.5-14.5); WBC 9.8 10x3/uL (4.8-10.8)
--- NOTE | 2019-04-01 13:00 | NUR ---
REC'D FROM FITZ. FRIEND AT BEDSIDE. MARIUM FIGUEROA SERVED.
--- NOTE | 2019-04-01 13:30 | NUR ---
TOLERATED FL DIET. FRIEND AT BEDSIDE.
--- NOTE | 2019-04-01 14:00 | NUR ---
IV DC'D WITH CATHETER INTACT. WRITTEN AND VERBAL DC INST. GIVEN TO PT ALONG WITH RX. VERBALIZED UNDERSTANDING.
--- NOTE | 2019-04-01 14:10 | NUR ---
DC'D HOME WITH FRIEND VIA PRIVATE VEHICLE. STABLE AT TIME OF STABLE.
--- NOTE | 2019-04-04 18:40 | HP ---
PATIENT: JACINTA CROCKER MEDICAL RECORD: [id number] ACCOUNT: [id number] LOCATION:[facility] : 70 ADMISSION DATE: 04/01/19 PCP: FREDY CATALAN MD HISTORY AND PHYSICAL EXAMINATION HISTORY: Ms. Crocker is a 48-year-old female with recurrent strep pharyngitis. She has been admitted for tonsillectomy. PAST MEDICAL HISTORY: Includes hypertension and cervical cancer. PAST SURGICAL HISTORY: Includes left ankle in 2012, right femur vero in 2014, right knee, and hysterectomy. CURRENT MEDICATIONS: Valium, lithium, lisinopril, Emgality, Ambien. ALLERGIES: LEVAQUIN, CIPRO, SULFA, KEFLEX, AND TRAMADOL. PHYSICAL EXAMINATION: GENERAL: She is healthy appearing and developmentally normal. FACE: Normal and symmetric. No lesions. EYES: Sclerae and conjunctivae are normal. EARS: Canals and TMs are normal. NOSE: No masses, polyps, or drainage. ORAL CAVITY AND OROPHARYNX: 3+ cryptic and chronically inflamed-appearing tonsils with copious tonsilliths. NECK: Small jugulodigastric adenopathy bilaterally. CHEST: Clear. CARDIOVASCULAR: Regular rate and rhythm. No murmur. EXTREMITIES: Normal. IMPRESSION: Chronic strep pharyngitis and caseous tonsillitis. PLAN: Tonsillectomy. TRANSINT:[id number] Voice Confirmation ID: [id number] DOCUMENT ID: [id number] MELBA PATRICIO MD at 1840 CC: [id number] DICTATION DATE: 03/30/19 1453 GROUND SERVICE EQUIPMENT MECHANIC: 03/30/19 1553 [facility] 04/01/19 [place] [id number]
--- NOTE | 2019-04-04 18:40 | OP ---
PATIENT NAME: JACINTA CROCKER MEDICAL RECORD: [id number] :70 [facility] ADMISSION DATE: SURGEON: MELBA ALVAREZ MD DATE OF OPERATION: 04/01/2019 PREOPERATIVE DIAGNOSIS: Chronic tonsillitis. POSTOPERATIVE DIAGNOSIS: Chronic tonsillitis. PROCEDURE: Tonsillectomy. SURGEON: Melba Alvarez MD ANESTHESIA: General orotracheal. BLOOD LOSS: 10 cc. SPECIMENS: Right and left tonsil. COMPLICATIONS: None. DISPOSITION: Recovery stable. FINDINGS: Copious large tonsilliths. PROCEDURE IN DETAIL: She was brought to the operating room and placed in supine position, sedated and intubated by anesthesia. The eyes were taped. Table was turned 90 degrees. Head drapes were applied and she was positioned for tonsillectomy. Using a headlight, a Vipul-Braeden mouth gag was carefully inserted and elevated on towel on her chest. The palate was examined and palpated, it was normal. A red rubber catheter was placed through the right side of the nose into the pharynx and grasped with tonsil clamp to retract the soft palate. Using a mirror, the nasopharynx was examined. The choanae and eustachian orifices were normal. There was no adenoid tissue. The red rubber catheter was let down and removed. The right tonsil was grasped at the superior pole with a straight Allis clamp. There was some tremendous amount of tonsilliths. Spatula tip cautery on a setting of 9 was used to dissect out the tonsil along its capsule, preserving the anterior and posterior tonsillar pillar. The left tonsil was removed in the same fashion. Then, both sides of the nose were irrigated with saline. The pharynx was suctioned. Tonsillar fossae were agitated. Suction cautery on a setting of 18 was used control minimal oozing. With the field clean and dry, the Vipul-Braeden mouth gag was let down and removed. She was awakened, extubated, and transported to recovery in good condition. No complications. TRANSINT:[id number] Voice Confirmation ID: [id number] DOCUMENT ID: [id number] OPERATIVE REPORT [id number] JACINTA CROCKERMELBA GRANGER MD at 5005 CC: [id number] DICTATION DATE: 04/01/19 1219 [facility]: 04/01/19 1253 [facility] [place] 04/01/19 [place] [id number] [place] [id number]
== END 2019-04-01 14:10 | disposition home or self-care (01) ==
LOC: D.OPS 07:07 → D.PAN 08:30 → D.OPS 08:30
PROVIDERS: Anesthesiology; ATTEND Otolaryngology
DX: J35.01 Chronic tonsillitis (principal)

== ENCOUNTER 2019-04-04 12:00 | Emergency (ER) | payer MEDICAID ==
[~2019-04-04] VITALS: Ht 172.7 cm; Wt 105.5 kg
[2019-04-04 12:20] VITALS: Ht 172.7 cm; Wt 105.5 kg
[2019-04-04 14:06] LABS: BASOPHILS 0.2 % (0-2); EOSINOPHILS 0.9 % (0-7); HEMATOCRIT 39.9 % (36.0-48.0); HEMOGLOBIN 13.7 g/dL (12-16); IMMATURE GRANULOCYTES 0.2 % (0-5); LYMPHOCYTES 20.7 % (15-50); MCH 30.6 pg (26.0-34.0); MCHC 34.3 g/dL (31.0-37.0); MCV 89.1 fL (80.0-100.0); MONOCYTES 4.6 % (2-11); NEUTROPHILS 73.4 % (40-80); PLATELET COUNT 267 10x3/uL (130-400); RBC 4.48 10x6/uL (4.00-5.40); RDW 14.2 % (11.5-14.5); WBC 13.2 10x3/uL (4.8-10.8)
[2019-04-04 14:24] LABS: ALBUMIN 3.8 g/dL (3.4-5.0); ANION GAP 14.2 mmol/L (8-16); BILIRUBIN - TOTAL 0.39 mg/dL (0.2-1.3); CALCIUM 8.4 mg/dL (8.5-10.1); CARBON DIOXIDE 25.2 mmol/L (21.0-32.0); CREATININE - SERUM 0.9 mg/dL (0.6-1.3); POTASSIUM - SERUM 3.4 mmol/L (3.5-5.1); PROTEIN - SERUM 6.9 g/dL (6.4-8.2)
[2019-04-04 15:33] VITALS: BP 127/67
== END 2019-04-04 15:33 | disposition home or self-care (01) ==
LOC: D.ER 12:00
PROVIDERS: Family Medicine
DX: G89.18 Other acute postprocedural pain (principal); J02.9 Acute pharyngitis, unspecified

== ENCOUNTER → 2019-05-06 08:14 | Outpatient (CLI) | payer MEDICAID ==
[2019-04-04 12:20] VITALS: BMI 35.3
== END | disposition home or self-care (01) ==
LOC: D.RAD 08:14 → D.US 09:00
PROVIDERS: ATTEND Internal Medicine Gastroenterology
DX: R10.9 Unspecified abdominal pain (principal); R19.7 Diarrhea, unspecified; R74.8 Abnormal levels of other serum enzymes

== ENCOUNTER → 2019-06-23 14:58 | Outpatient (CLI) | payer MEDICAID ==
[2019-04-04 12:20] VITALS: BMI 35.3
== END | disposition home or self-care (01) ==
LOC: D.CT 14:58
PROVIDERS: ATTEND Orthopaedic Surgery
DX: M79.671 Pain in right foot (principal)

== ENCOUNTER 2019-11-20 05:59 | Emergency (ER) | payer MEDICAID ==
[~2019-11-20] VITALS: Ht 172.7 cm; Wt 110.0 kg
[2019-11-20 06:06] VITALS: Ht 172.7 cm; Wt 110.0 kg
[2019-11-20] MEDS ORDERED: VALIUM10 MG PO (06:09)
[2019-11-20] MEDS ORDERED: MINIPRESS1 MG PO (06:09)
[2019-11-20] MEDS ORDERED: REXULTI1 MG PO (06:09)
[2019-11-20] MEDS ORDERED: NAPROSYN500 MG PO (06:35)
[2019-11-20] MEDS ORDERED: NORCO-7.51 TAB PO (06:35)
[2019-11-20 06:49] VITALS: BP 120/74
== END 2019-11-20 06:48 | disposition home or self-care (01) ==
LOC: D.ER 05:59
DX: M25.561 Pain in right knee (principal); I10 Essential (primary) hypertension; W19.XXXA Unspecified fall, initial encounter; Y93.9 Activity, unspecified; Y92.9 Unspecified place or not applicable

== ENCOUNTER 2020-02-11 15:41 | Emergency (ER) | payer MEDICAID ==
[~2020-02-11] VITALS: Ht 172.7 cm; Wt 114.5 kg
[~2020-02-11 15:41] MED LIST changes: +MINIPRESS1 MG PO; +NAPROSYN500 MG PO; +NORCO-7.51 TAB PO; +REXULTI1 MG PO
[2020-02-11 15:49] VITALS: Ht 172.7 cm; Wt 114.5 kg
[2020-02-11] MEDS ORDERED: HYDROCODON-ACE1 EA10 PO (16:42)
[2020-02-11 17:01] VITALS: BP 142/82
== END 2020-02-11 17:02 | disposition home or self-care (01) ==
LOC: D.ER 15:41
DX: S83.8X1A Sprain of other specified parts of right knee, initial encounter (principal); W19.XXXA Unspecified fall, initial encounter; Y93.9 Activity, unspecified; Y92.9 Unspecified place or not applicable; I10 Essential (primary) hypertension

== ENCOUNTER 2020-03-05 14:02 | Observation (INO) | payer BC ==
[~2020-03-05] VITALS: Ht 172.7 cm; Wt 107.7 kg
--- NOTE | 2020-03-05 14:15 | NUR ---
REPORT CALLED TO NILAM STAFF @ [facility]
[2020-03-05 14:51] VITALS: BP 109/46
[2020-03-05 14:51] LABS: BASOPHILS 0.2 % (0-2); EOSINOPHILS 1.1 % (0-7); HEMATOCRIT 42.5 % (36.0-48.0); HEMOGLOBIN 14.7 g/dL (12-16); IMMATURE GRANULOCYTES 0.2 % (0-5); LYMPHOCYTES 17.8 % (15-50); MCH 30.4 pg (26.0-34.0); MCHC 34.6 g/dL (31.0-37.0); MCV 87.8 fL (80.0-100.0); MEAN PLATELET VOLUME 11.7 fL (7.4-10.4); MONOCYTES 11.6 % (2-11); NEUTROPHILS 69.1 % (40-80); PLATELET COUNT 229 10x3/uL (130-400); RBC 4.84 10x6/uL (4.00-5.40); RDW 13.8 % (11.5-14.5); WBC 10.9 10x3/uL (4.8-10.8)
[2020-03-05 15:17] LABS: ALBUMIN 4.1 g/dL (3.4-5.0); ALKALINE PHOSPHATASE 121 U/L (30-120); ALT (SGPT) 96 U/L (10-68); BILIRUBIN - TOTAL 0.78 mg/dL (0.2-1.3); CALC OSMOLALITY 269 mosm/kg (275-300); CALCIUM 9.3 mg/dL (8.5-10.1); CARBON DIOXIDE 25.6 mmol/L (21.0-32.0); CHLORIDE - SERUM 98 mmol/L (98-107); CKMB 10.3 U/L (0.0-3.6); GLUCOSE 116 mg/dL (74-106); PROTEIN - SERUM 7.6 g/dL (6.4-8.2); SODIUM 134 mmol/L (136-145); UREA NITROGEN 14 mg/dL (7-18); eGFR NON AFRICAN AMERICAN 28 mL/min (90-120)
[2020-03-05 15:20] LABS: CREATINE KINASE 895 UL (21-215); TROPONIN-I < 0.017 ng/mL (0.000-0.060)
[2020-03-05 15:23] LABS: POTASSIUM - SERUM 2.4 mmol/L (3.5-5.1)
[2020-03-05 15:40] VITALS: BP 124/58
--- NOTE | 2020-03-05 15:57 | NUR ---
TO COMMODITY LOAN CLERK, CONDITION STABLE
[2020-03-05 16:05] LABS: BILIRUBIN NEGATIVE (NEGATIVE); GLUCOSE NEGATIVE (NEGATIVE); KETONE NEGATIVE (NEGATIVE); NITRITE NEGATIVE (NEGATIVE); UROBILINOGEN NORMAL (NORMAL)
[2020-03-05 16:06] LABS: BACTERIA FEW /hpf (NEGATIVE); EPITHELIAL CELLS 0-5 /hpf (0-5); RED CELLS - URINE 0-5 /hpf (0-5); WHITE CELLS - URINE 0-5 /hpf (NEGATIVE)
[2020-03-05 16:16] LABS: UDS - AMPHET POSITIVE QUAL (NEGATIVE); UDS - BARB NEGATIVE QUAL (NEGATIVE); UDS - BENZO POSITIVE QUAL (NEGATIVE); UDS - COCAINE NEGATIVE QUAL (NEGATIVE); UDS - OPIATE POSITIVE QUAL (NEGATIVE); UDS - PCP NEGATIVE QUAL (NEGATIVE); UDS - THC POSITIVE QUAL (NEGATIVE)
[2020-03-05 17:14] VITALS: BP 138/74
--- NOTE | 2020-03-05 18:38 | NUR ---
REPORT TO JAMIR NUNEZ
--- NOTE | 2020-03-05 18:59 | NUR ---
ADMIT TO ROOM #2126, CONDITION STABLE
--- NOTE | 2020-03-05 19:09 | NUR ---
RECIEVED TO ROOM 2126 FROM ER VIA . PT A&O. PLACED ON TELEMETRY, 89 SR PER MT. IV TO LEFT ARM SL, SITE CLEAN AND DRY. HISTORY AND MED REC OBTAINED. PT VERY ANXIOUS. PT ASKED SEVERAL TIMES IF SHE HAD SIGNED 72 HOUR HOLD PAPER WORK IN THE ER, EXPALINED TO PT EACH TIME THAT SHE ASKED, THAT SHE WOULD NOT BE ABLE TO BE ON A REGULAR MEDICAL FLOOR IF SHE WERE ON A 72 HOUR HOLD, PT ALSO ASKING IF WHEN SHE IS DISCHANGED IF SHE WILL BE ESCORTED TO A PSYCH FACILITY TO BE PLACED ON A 72 HOUR HOLD. PT STATED THAT SHE DID SMOKE METH ON THURSDAY AND THURSDAY BUT DENIES SMOKING MARIJUANA. PT STATES THAT SHE NEEDS MEDICATION BECAUSE HER TOUNGE IS SWELLING, NO SWELLING NOTED WHEN PT STUCK OUT HER TOUNGE. PAGE OUT TO KILEY MCLAUGHLIN APN FOR FURTHER ORDERS.
[2020-03-05 21:51] VITALS: BMI 38.1
[2020-03-05 22:05] VITALS: BP 158/86
--- NOTE | 2020-03-05 22:32 | NUR ---
MORPHINE 1 MG GIVEN FOR C/O PAIN TO BACK AND TOUNGE. RATES PAIN AT A 6 ON PAI9N SCALE.
--- NOTE | 2020-03-05 23:01 | NUR ---
ANSWERED CL, WITH CHARGE NURSE AT MY SIDE. PT ASKING FOR HER LITHIUM AND AMBIEN, EXPLAINED TO PT THAT I DO NOT HAVE AN ORDER FOR THOSE MEDICAITONS, PT ASKING ME TO CALL THE DOCTOR. INFORMED PT THAT I HAVE TALKED TO THE HEALTH CARE PROVIDER TWICE IN REGARDS TO HER MEDICATION, EXPLAINED TO PT THAT THE HCP IS WATCHING HER KIDNEY FUNCTION AND WATCHING WHAT MEDICATIONS ARE BEING GIVEN, AND THAT WE WILL BE CHECKING HER LITHIUM LEVELS IN AM AND POSSIBLY TOMORROW AFTER LABS ARE DRAWN THE HCP WILL ORDER THE REST OF HER MEDICATIONS. PT ASKED TO SEE HER MEDICAL RECORDS, INFORMED PT THAT SHE CAN SEE HER MEDICAL RECORDS AFTER SHE FILLS OUT A REQUEST WITH THE MEDICAL RECORDS DEPT IN THE AM. PT ASKED IF WE WOULD BE HONEST WITH HER, AND ASKED AGAIN IF SHE WAS HERE ON A 72 HOUR HOLD. EXPLAINED TO PT AGAIN, THAT SHE IS ON A REGULAR MEDICAL FLOOR AND NOT ON A HOLD.
[2020-03-06 00:30] VITALS: BP 131/68
--- NOTE | 2020-03-06 01:09 | NUR ---
PT AT NURSES DESK, STATED THAT SHE DOES NOT WANT MAKING ANY DECISIONS REGARDING HER HEALTH CARE, ALSO STATED THAT SHE KNOWS WHAT IS REALLY GOING ON AND THAT SHE IS GOING TO CALL DR CATALAN AND HER PSYCHIATRIST DR TOM IN THE MORNING SO THAT THEY CAN TAKE CARE OF HER.
[2020-03-06 05:16] VITALS: BP 114/48
[2020-03-06 06:14] LABS: BASOPHILS 0.1 % (0-2); EOSINOPHILS 1.9 % (0-7); HEMATOCRIT 37.3 % (36.0-48.0); HEMOGLOBIN 12.7 g/dL (12-16); IMMATURE GRANULOCYTES 0.1 % (0-5); MCH 30.2 pg (26.0-34.0); MCV 88.6 fL (80.0-100.0); MEAN PLATELET VOLUME 12.2 fL (7.4-10.4); MONOCYTES 9.9 % (2-11); PLATELET COUNT 208 10x3/uL (130-400); RBC 4.21 10x6/uL (4.00-5.40)
[2020-03-06 06:50] LABS: CALCIUM 8.2 mg/dL (8.5-10.1); CARBON DIOXIDE 23.2 mmol/L (21.0-32.0); CHLORIDE - SERUM 107 mmol/L (98-107); GLUCOSE 109 mg/dL (74-106); MAGNESIUM - SERUM 1.7 mg/dL (1.8-2.4); PHOSPHOROUS 2.3 mg/dL (2.5-4.9); SODIUM 140 mmol/L (136-145)
[2020-03-06 06:51] LABS: CALC OSMOLALITY 277 mosm/kg (275-300); CREATINE KINASE 443 UL (21-215); CREATININE - SERUM 1.2 mg/dL (0.6-1.3); UREA NITROGEN 7 mg/dL (7-18); eGFR NON AFRICAN AMERICAN 51 mL/min (90-120)
[2020-03-06 06:52] LABS: POTASSIUM - SERUM 2.9 mmol/L (3.5-5.1)
[2020-03-06 06:53] LABS: CKMB 5.6 U/L (0.0-3.6)
--- NOTE | 2020-03-06 09:15 | NUR ---
ASSESSMENT DONE. DENIES NEEDS
[2020-03-06 09:36] VITALS: BP 110/55
--- NOTE | 2020-03-06 09:59 | NUR ---
I have reviewed this patient and I concur with the Shift Assessment completed by the Licensed Practical Nurse today this shift.
--- NOTE | 2020-03-06 13:49 | NUR ---
PINO HERNANDEZ, ADM AND MYSELF IN ROOM PATIENT WANTS TO CHANGE HER HEALTHCARE PROXY FROM [facility] TO [facility]. SHE STATES [facility] CAN BE IN ROOM WHILE SHE IS AWAKE BUT NO INFORMATION TO BE GIVEN BY PHONE. THIS IS CHANGED IN THE [place]. DATA WITH PINO PRESENT.
[2020-03-06 14:07] VITALS: Ht 172.7 cm; Wt 107.7 kg
[2020-03-06 14:24] VITALS: BP 119/56
--- NOTE | 2020-03-06 16:47 | NUR ---
WITHOUT CHANGES OR DISTRESS NOTED AT THSI TIME. DENIES NEEDS
[2020-03-06 17:25] LABS: APTT 26.8 SECONDS (22.8-39.4); INR 1.07 (0.85-1.17); PROTIME 13.9 SECONDS (11.6-15.0)
[2020-03-06 17:26] LABS: D-DIMER-QUANTITATIVE 0.49 ug/mLFEU (0.20-0.54)
[2020-03-06 18:45] VITALS: BP 127/68
[2020-03-06 20:00] VITALS: BP 114/63
[2020-03-07] VITALS: BP 120/66
[2020-03-07 04:00] VITALS: BP 122/63
[2020-03-07 06:18] LABS: BASOPHILS 0.2 % (0-2); EOSINOPHILS 3.3 % (0-7); HEMATOCRIT 34.3 % (36.0-48.0); HEMOGLOBIN 11.1 g/dL (12-16); IMMATURE GRANULOCYTES 0.2 % (0-5); LYMPHOCYTES 46.2 % (15-50); MCH 29.1 pg (26.0-34.0); MCHC 32.4 g/dL (31.0-37.0); MCV 89.8 fL (80.0-100.0); MONOCYTES 9.8 % (2-11); NEUTROPHILS 40.3 % (40-80); PLATELET COUNT 181 10x3/uL (130-400); RBC 3.82 10x6/uL (4.00-5.40); RDW 14.4 % (11.5-14.5)
[2020-03-07 06:41] LABS: WBC 4.3 10x3/uL (4.8-10.8)
[2020-03-07 06:52] LABS: BILIRUBIN - TOTAL 0.26 mg/dL (0.2-1.3); CALCIUM 7.8 mg/dL (8.5-10.1); CARBON DIOXIDE 24.5 mmol/L (21.0-32.0); MAGNESIUM - SERUM 1.7 mg/dL (1.8-2.4); PHOSPHOROUS 2.7 mg/dL (2.5-4.9); POTASSIUM - SERUM 3.5 mmol/L (3.5-5.1)
--- NOTE | 2020-03-07 06:58 | NUR ---
ASSESSMENT DONE. DENIES NEEDS
[2020-03-07 06:59] LABS: ALBUMIN 2.5 g/dL (3.4-5.0)
--- NOTE | 2020-03-07 09:36 | NUR ---
I have reviewed this patient and I concur with the Shift Assessment completed by the Licensed Practical Nurse today this shift.
--- NOTE | 2020-03-07 12:39 | NUR ---
PER NEIDA IN ADMIN, PATIENT CALLED HER AND WANTED HER HEALTH PROXY BACK TO [facility]. I CHANGED IT.
--- NOTE | 2020-03-07 13:00 | CN ---
PATIENT NAME:JACINTA CROCKER MEDICAL RECORD: [id number] : 70 LOCATION:D.M2 D.2126 ADMIT DATE: 03/05/20 ACCOUNT: [id number] CONSULTING PHYSICIAN: GENARO JARAMILLO MD REFERRING PHYSICIAN: BERKLEY MARTINEZ MD DATE OF CONSULTATION: 03/06/2020 IDENTIFYING DATA: The patient is a 49-year-old and she is admitted to the hospital secondary to confusion. CHIEF COMPLAINT: Paranoia. HISTORY OF PRESENT ILLNESS: The patient has a history of methamphetamine addiction. She also abuses marijuana, opiates and has a prescription she says for benzodiazepines, specifically Valium. She has a long psychiatric history and is followed by a therapist and outpatient psychiatrist. She has no thoughts of harming herself or others. She is fully oriented and does have some mild mood lability, which could easily be explained through methamphetamine withdrawal. She is not showing any psychotic symptoms now. She says that she recalls the symptoms where she was paranoid and so she believes it was because she was on methamphetamine and explains that she has had similar instances in the past when she has used methamphetamine. ASSESSMENT: 1. Bipolar disorder by history. 2. Polysubstance abuse. PLAN: The patient does not want any kind of inpatient or outpatient substance abuse treatment. She wants to go back to her outpatient psychiatrist and therapist. There are no symptoms that would require involuntary hospitalization. However, I think she would benefit from substance abuse treatment, which she declines. If her renal function improves and there is no medical reason for her to have a continued stay in the hospital tomorrow or the next day, then I think it is appropriate for her to be transitioned to an outpatient setting. I would recommend something to assist her with sleep and would not continue that after she is discharged tomorrow or the next day. TRANSINT:[id number] Voice Confirmation ID: [id number] DOCUMENT ID: [id number] GENARO JARAMILLO MD at 1300 CC: [id number] DICTATION DATE: 03/06/20 1626 MOBILE DISC JOCKEY: 03/07/20 0051 ADM IN [facility] [id number] [place] [address]
--- NOTE | 2020-03-07 13:35 | NUR ---
DC GIVEN TO PT AMD
== END 2020-03-07 15:04 | disposition home or self-care (01) ==
LOC: D.ER 14:02 → D.M2 17:46 → OBSVTIME 18:22 → D.M2 03-07 15:04
PROVIDERS: Family Medicine; ADMIT Family Medicine; ATTEND Family Medicine
DX: N17.9 Acute kidney failure, unspecified (principal); M62.82 Rhabdomyolysis; F15.10 Other stimulant abuse, uncomplicated; F17.203 Nicotine dependence unspecified, with withdrawal; E87.6 Hypokalemia; E83.42 Hypomagnesemia; E83.39 Other disorders of phosphorus metabolism

== ENCOUNTER 2020-03-12 18:44 | Emergency (ER) | payer MEDICAID ==
[~2020-03-12] VITALS: Ht 172.7 cm; Wt 114.5 kg
[2020-03-12 19:19] VITALS: Ht 172.7 cm; Wt 114.5 kg
[2020-03-12 21:07] LABS: C-REACTIVE PROTEIN 1.7 mg/dL (0.0-0.9)
[2020-03-12 21:10] LABS: BASOPHILS 0.3 % (0-2); EOSINOPHILS 2.8 % (0-7); HEMATOCRIT 40.9 % (36.0-48.0); HEMOGLOBIN 13.7 g/dL (12-16); IMMATURE GRANULOCYTES 0.3 % (0-5); LYMPHOCYTES 35.3 % (15-50); MCH 30.2 pg (26.0-34.0); MCHC 33.5 g/dL (31.0-37.0); MCV 90.3 fL (80.0-100.0); MEAN PLATELET VOLUME 10.6 fL (7.4-10.4); MONOCYTES 9.9 % (2-11); NEUTROPHILS 51.4 % (40-80); PLATELET COUNT 311 10x3/uL (130-400); RBC 4.53 10x6/uL (4.00-5.40); WBC 7.3 10x3/uL (4.8-10.8)
[2020-03-12 21:11] LABS: BILIRUBIN NEGATIVE (NEGATIVE); GLUCOSE NEGATIVE (NEGATIVE); KETONE NEGATIVE (NEGATIVE); NITRITE NEGATIVE (NEGATIVE); UROBILINOGEN NORMAL (NORMAL)
[2020-03-12 21:12] LABS: BACTERIA FEW /hpf (NEGATIVE); EPITHELIAL CELLS 0-5 /hpf (0-5); RED CELLS - URINE OCC /hpf (0-5); WHITE CELLS - URINE 0-5 /hpf (NEGATIVE)
[2020-03-12 21:23] LABS: ANION GAP 12.3 mmol/L (8-16); CALCIUM 8.9 mg/dL (8.5-10.1); CARBON DIOXIDE 28.1 mmol/L (21.0-32.0); CREATININE - SERUM 1.1 mg/dL (0.6-1.3); POTASSIUM - SERUM 3.4 mmol/L (3.5-5.1)
[2020-03-12 21:25] LABS: ALBUMIN 3.3 g/dL (3.4-5.0); BILIRUBIN - TOTAL 0.34 mg/dL (0.2-1.3); PROTEIN - SERUM 6.2 g/dL (6.4-8.2)
[2020-03-13 00:19] LABS: UDS - AMPHET NEGATIVE QUAL (NEGATIVE); UDS - BARB NEGATIVE QUAL (NEGATIVE); UDS - BENZO POSITIVE QUAL (NEGATIVE); UDS - COCAINE NEGATIVE QUAL (NEGATIVE); UDS - OPIATE NEGATIVE QUAL (NEGATIVE); UDS - PCP NEGATIVE QUAL (NEGATIVE); UDS - THC POSITIVE QUAL (NEGATIVE)
[2020-03-13 00:46] VITALS: BP 136/78
== END 2020-03-13 00:46 | disposition home or self-care (01) ==
LOC: D.ER 18:44
PROVIDERS: Family Medicine
DX: R10.2 Pelvic and perineal pain (principal); R10.30 Lower abdominal pain, unspecified; I10 Essential (primary) hypertension; R30.9 Painful micturition, unspecified

== ENCOUNTER → 2020-03-26 21:32 | Outpatient (CLI) | payer MEDICAID ==
[2020-03-12 19:19] VITALS: BMI 38.4
== END | disposition home or self-care (01) ==
LOC: D.LABREF 21:32
PROVIDERS: ATTEND Orthopaedic Surgery
DX: M17.11 Unilateral primary osteoarthritis, right knee (principal)

== ENCOUNTER → 2020-03-28 10:43 | Outpatient (CLI) | payer MEDICAID ==
[2020-03-12 19:19] VITALS: BMI 38.4
== END | disposition home or self-care (01) ==
LOC: D.CT 10:43
PROVIDERS: ATTEND Nurse Practitioner Family
DX: M17.11 Unilateral primary osteoarthritis, right knee (principal)

== ENCOUNTER 2020-03-29 09:26 | Inpatient (IN) | payer MEDICAID ==
[~2020-03-29] VITALS: Ht 172.7 cm; Wt 109.8 kg
[~2020-03-29 09:26] MED LIST changes: -PRINIVIL10 MG; +PRINIVIL10 MG PO
[2020-04-24] MEDS ORDERED: [UNRECOGNIZED DRUG - OTHER] PO (12:43)
[2020-04-25 09:38] LABS: BASOPHILS 0.3 % (0-2); EOSINOPHILS 1.4 % (0-7); HEMATOCRIT 45.4 % (36.0-48.0); HEMOGLOBIN 15.2 g/dL (12-16); IMMATURE GRANULOCYTES 0.3 % (0-5); LYMPHOCYTES 28.2 % (15-50); MCH 30.4 pg (26.0-34.0); MCHC 33.5 g/dL (31.0-37.0); MCV 90.8 fL (80.0-100.0); NEUTROPHILS 61.8 % (40-80); PLATELET COUNT 285 10x3/uL (130-400); RDW 13.8 % (11.5-14.5); WBC 11.7 10x3/uL (4.8-10.8)
[2020-04-25 09:40] LABS: BILIRUBIN NEGATIVE (NEGATIVE); GLUCOSE NEGATIVE (NEGATIVE); KETONE NEGATIVE (NEGATIVE); NITRITE NEGATIVE (NEGATIVE); UROBILINOGEN NORMAL (NORMAL)
[2020-04-25 09:53] LABS: ANION GAP 10.2 mmol/L (8-16); CALCIUM 10.2 mg/dL (8.5-10.1); CARBON DIOXIDE 27.4 mmol/L (21.0-32.0); POTASSIUM - SERUM 3.6 mmol/L (3.5-5.1)
[2020-04-25 09:55] LABS: APTT 26.5 SECONDS (22.8-39.4); INR 0.96 (0.85-1.17); PROTIME 12.8 SECONDS (11.6-15.0)
[2020-05-01] VITALS (8 sets, daily range): BP systolic 124–171; BP diastolic 55–85; BMI 34.1; BMI 36.8
--- NOTE | 2020-05-01 07:48 | NUR ---
THROUGH TRAFFIC KEPT TO A MINIMUM. HIBACLENS AND ALCOHOL USED TO WASH BEFORE PREPPING. STERILE GOWNED AND GLOVED TO PREP WITH CHLORAPREP.
--- NOTE | 2020-05-01 11:38 | NUR ---
PT REPORTING FEELING SOB. O2 TURNED ON TO 2L PER NC. ENCOURAGED PT TO TAKE SLOW DEEP BREATHS AND TRY TO RELAX. VSS. WILL CONTINUE TO MONITOR.
--- NOTE | 2020-05-01 12:20 | NUR ---
PT SOB IMPROVED. WILL CONTINUE TO MONITOR.
--- NOTE | 2020-05-01 20:00 | NUR ---
ALERT RESTIGN IN BED, CPM IN USE DENIES PAIN OR NEEDS AT THIS TIME, CALL LIGHT IN REACH
[2020-05-02] VITALS: BP 118/56
--- NOTE | 2020-05-02 03:26 | OP ---
PATIENT NAME: JACINTA CROCKER MEDICAL RECORD: [id number] :70 LOCATION:D.M3 D.1209 ADMISSION DATE:05/01/20 SURGEON: ARNALDO BLAS DO DATE OF OPERATION: 05/01/2020 PROCEDURE PERFORMED: Right total knee arthroplasty. PREOPERATIVE DIAGNOSIS: Right knee osteoarthritis. POSTOPERATIVE DIAGNOSIS: Right knee osteoarthritis. INDICATIONS: Ms. Crocker is a 49-year-old female who has had right knee pain for a very long time. She had a femur fracture with an antegrade nail put in. Therefore, I had to use a special signature knee blocks from [employer]. She has been dealing with this pain for quite some time. Ms. Crocker was aware of the risks including infection, bleeding, damage to nerves and vessels, need for further surgery, continued pain and instability, loss of motion and blood clots, and even and she signed the consent. SURGEON: Arnaldo Blas DO DESCRIPTION OF PROCEDURE: The patient received block by anesthesia in the preoperative area, taken to the operative suite, laid in supine position, given 1.5 grams of vancomycin preoperatively and a gram of TXA. She was then sedated and LMA was placed. She was then placed in the OR suite in supine position and once the ulna was placed, the right lower extremity was prepped and draped in sterile fashion. Timeout was performed. Everyone was agreeance with correct site, side, patient, and the procedure. I then marked out the anterior incision of the knee, covered in Ioban. Once this covered in Ioban, using a #10 blade scalpel to make an incision through the skin down to the capsule, then used a fresh 10 blade and we did do a medial parapatellar approach to coagulate any vessels at the time with Aquamantys. I then everted the patella and milled it down and sized it to be 31. I then put on the cutting block for the femur. I rested it on the femoral condyle and pinned it. Having done that, I then put the distal cutting block on and cut the distal femur. I then exposed the tibia and cut the proximal tibia off the lateral side as she had a valgus deformity. I then sized the femur and with 3 degrees external rotation to a 65. 65 4-in-1 cutting block was then put on. I then cut through that. I then put a trial with 65 on and then floated in a 67 tibia with a 10 poly. She was very loose medially and laterally, so in order to balance the knee, I had to release all the structures laterally including IT band, popliteal tendon and the LCL. Once she was in adequate balance with those, I also released the posterolateral corner down the posterior and lateral tibia. I then drilled the femur lug holes in the patella as well, marked the rotation on the tibia. Once that was all done, the trials were removed and the tibia was sized to be 67. 67 cruciate tibia was then reamed and punched and extra hole was put in the tibia with cement. Cement was then mixed after the tibia was irrigated, put cement into the tibia and on the implant and impacted in to place. Excess cement was removed. I then impacted the femur on to good fit and then cleaned the patella and put the patella, cemented the patella in the holes and on the implant and put the squeezer on and removed the excess cement. I then put in a 10% Povidone iodine solution and let it set for 3 minutes and irrigated out with normal saline 1 liter. I then trialed the implants, put a 16 poly in and had good stability in varus and valgus stress in flexion and extension and she had good OPERATIVE REPORT [id number] JACINTA CROCKER. I put in 16 poly and locked it into place. I then irrigated the knee one more time, put in David and vancomycin and tobramycin powder and then closed the capsule with #1 Vicryl popoffs in a [id number] fashion. I then assisted Bg Farley in closing the skin with 2-0 Vicryl in an inverted interrupted fashion. ZipLine was placed on the knee and Bg Farley, certified surgical first student, they then dressed the knee with Adaptic, 4 x 4s, ABD, Webril, Tanvir wrap and NEGRITA stocking up to the knee. She was then awakened and taken to recovery in stable condition. BLOOD LOSS: Approximately 250 mL. COMPLICATIONS: None. TRANSINT:[id number] Voice Confirmation ID: [id number] DOCUMENT ID: [id number] ARNALDO BLAS DO at 0326 CC: [id number] DICTATION DATE: 05/01/20 1535 DROP WIRE STRINGER: 05/02/20 0041 ADM IN [facility] [address] [place] [address]
[2020-05-02 04:00] VITALS: BP 101/59
--- NOTE | 2020-05-02 07:49 | NUR ---
PT AWAKE AND ALERT. ASSISTED WITH BEDPAN. NO FURTHER NEEDS AT THIS TIME. WCTM
[2020-05-02 08:25] VITALS: BP 121/50
[2020-05-02 09:22] LABS: BASOPHILS 0.1 % (0-2); EOSINOPHILS 0.1 % (0-7); HEMATOCRIT 38.5 % (36.0-48.0); HEMOGLOBIN 12.9 g/dL (12-16); IMMATURE GRANULOCYTES 0.3 % (0-5); LYMPHOCYTES 15.1 % (15-50); MCH 30.2 pg (26.0-34.0); MCHC 33.5 g/dL (31.0-37.0); MCV 90.2 fL (80.0-100.0); MEAN PLATELET VOLUME 10.8 fL (7.4-10.4); MONOCYTES 8.8 % (2-11); NEUTROPHILS 75.6 % (40-80); PLATELET COUNT 262 10x3/uL (130-400); RBC 4.27 10x6/uL (4.00-5.40); RDW 13.8 % (11.5-14.5); WBC 14.9 10x3/uL (4.8-10.8)
[2020-05-02 09:44] LABS: ANION GAP 9.9 mmol/L (8-16); CALCIUM 8.8 mg/dL (8.5-10.1); CARBON DIOXIDE 24.8 mmol/L (21.0-32.0); CREATININE - SERUM 1.1 mg/dL (0.6-1.3); MAGNESIUM - SERUM 1.9 mg/dL (1.8-2.4); PHOSPHOROUS 2.4 mg/dL (2.5-4.9); POTASSIUM - SERUM 3.7 mmol/L (3.5-5.1)
[2020-05-02 10:21] LABS: BILIRUBIN NEGATIVE (NEGATIVE); GLUCOSE NEGATIVE (NEGATIVE); KETONE NEGATIVE (NEGATIVE); NITRITE NEGATIVE (NEGATIVE); UROBILINOGEN NORMAL (NORMAL)
[2020-05-02 10:34] VITALS: Ht 172.7 cm; Wt 109.8 kg
[2020-05-02 11:30] VITALS: BP 128/57
[2020-05-02 16:00] VITALS: BP 134/62
--- NOTE | 2020-05-02 16:39 | NUR ---
DRESSING CHANGED PER DR BLAS. TOLERATED WELL. CL IN REACH. [facility] IN ROOM. WCTM
[2020-05-02 19:47] VITALS: BP 135/63
--- NOTE | 2020-05-02 20:00 | NUR ---
ALERT RESTING IN BED CPM IN USE, DENIES PAIN OR NEEDS AT THIS TIME, SEE SHIFT ASSESSMENT, CALL LIGHT IN REACH
[2020-05-03 05:39] VITALS: BP 109/39
[2020-05-03 07:00] LABS: BASOPHILS 0.2 % (0-2); EOSINOPHILS 0.2 % (0-7); HEMATOCRIT 37.6 % (36.0-48.0); HEMOGLOBIN 12.6 g/dL (12-16); IMMATURE GRANULOCYTES 0.2 % (0-5); LYMPHOCYTES 24.7 % (15-50); MCH 30.4 pg (26.0-34.0); MCHC 33.5 g/dL (31.0-37.0); MCV 90.6 fL (80.0-100.0); MEAN PLATELET VOLUME 11.4 fL (7.4-10.4); MONOCYTES 9.1 % (2-11); NEUTROPHILS 65.6 % (40-80); PLATELET COUNT 254 10x3/uL (130-400); RBC 4.15 10x6/uL (4.00-5.40); RDW 13.9 % (11.5-14.5); WBC 12.8 10x3/uL (4.8-10.8)
[2020-05-03 07:11] LABS: ANION GAP 14.3 mmol/L (8-16); CALCIUM 8.4 mg/dL (8.5-10.1); CARBON DIOXIDE 26.6 mmol/L (21.0-32.0); CREATININE - SERUM 1.1 mg/dL (0.6-1.3); MAGNESIUM - SERUM 1.9 mg/dL (1.8-2.4); POTASSIUM - SERUM 3.9 mmol/L (3.5-5.1)
[2020-05-03 07:12] LABS: PHOSPHOROUS 3.5 mg/dL (2.5-4.9)
--- NOTE | 2020-05-03 07:30 | NUR ---
AWAKE AND ALERT. ORIENTED X3. NO C/O AT THIS TIME.
[2020-05-03 07:58] VITALS: BP 107/50
[2020-05-03] MEDS ORDERED: oxyCODONE IR PO (08:20)
[2020-05-03] MEDS ORDERED: ELIQUIS2.5 MG PO (08:21)
[2020-05-03] MEDS ORDERED: VISTARIL50 MG PO (08:21)
--- NOTE | 2020-05-03 08:40 | NUR ---
AWAKE AND ALERT. ORIENTED X3. C/O PAIN TO LEFT KNEE LEVEL 8, GIVEN 10MG OXY IR WITH 50MG VISTARIL FOR SAME. WILL MONITOR. LUNGS ARE CLEAR BILATERALLY, NO COUGH NOTED. REPORTS USED IS INSTRUCTED. SKIN IS INTACT WITHOUT REDNESS EXCEPT INCISION TO LEFT KNEE WHICH HAS A DRY INTACT DRESSING IN PLACE. IV TO RIGHT HAND IS PATENT WTIHOUT REDNESS AT INSERTION SITE. DENIES NEEDS. BREAKFAST SERVED IN ROOM. FEEDS SELF WITHOUT DIFFICULTY.
--- NOTE | 2020-05-03 09:10 | NUR ---
AMBULATED IN HALLWAY WITH PT USING RW. REPORTS PAIN IMPROVER AT THIS TIME.
[2020-05-03 12:00] VITALS: BP 123/46
--- NOTE | 2020-05-03 12:30 | NUR ---
LUNCH SERVED IN ROOM. FEEDS SELF. DENIES NEEDS.
--- NOTE | 2020-05-03 13:24 | NUR ---
REQUESTED AND GIVEN 10MG OXY IR WITH 50MG VISTARIL PO FOR C/O RIGHT KNEE PAIN LEVEL 8. WILL MONITOR. FAMILY AT BEDSIDE.
--- NOTE | 2020-05-03 14:30 | NUR ---
ATTEMPTED TO CLIMB STEPS WITHOUT SUCCESS WITH PT. WILL TRY AGAIN LATER.
[2020-05-03 16:40] VITALS: BP 122/45
--- NOTE | 2020-05-03 17:36 | NUR ---
ATE MOST OF SUPPER TRAY. UP TO BSC WITH MIN ASSIST OF ONE. VOIDED LARGE VOLUMN CLEAR YELLOW URINE. ROPOSITIONED IN BED FOR COMFORT. PLACED ON CPM AT THIS TIME. NO CHANGES NOTED. DENIES NEEDS.
--- NOTE | 2020-05-03 18:08 | MORECARE ---
CASE MANAGEMENT DISCHARGE SUMMARY PATIENT: JACINTA CROCKER UNIT: [id number] ADM DATE: 05/01/20 AGE: 49 : 70 SEX: F ROOM/BED: D.1209 AUTHOR: TREVA ALVARADO PHYSICIAN: REFERRING PHYSICIAN: SAHARA BLAS DO DATE OF SERVICE: 05/03/20 Discharge Plan Patient Name: JACINTA CROCKER Facility: [facility]:[place] : 1970 Planned Disposition: Home or Self Care Anticipated Discharge Date: Discharge Date: Expected LOS: Initial Reviewer: [email or web address] Initial Review Date: 05/01/2020 Generated: 05/03/20 7:07 pm Comments DCP- Discharge Planning Updated by [email or web address]: Selin Morrell on 05/03/20 5:[address] Patient Name: JACINTA CROCKER Admission Status: Elective Accout number: [id number] Admission Date: 05-01-2020 : 1970 Admission Diagnosis: Attending: SAHARA BLAS Current LOS: 2 Anticipated DC Date: Planned Disposition: Home or Self Care Primary [place]: [place] [employer] [place] Discharge Planning Comments: LATE ENTRY 05/02/20 @ 1330 CM met with patient to complete initial dc planning assessment. CM educated patient on the CM role and verbal consent given by patient to complete assessment. Patient lives at home with her spouse where she was independent with her care. At discharge patient plans to return home and feels this is a safe discharge. CM discussed availability of home health, rehab services, and medical equipment. The patient would like to go to OP PT at [facility] in [place]. I will call and make their first appointment and the patient will have a copy on her dc instructions along with the script. The patient has had all of her DME set up with [facility]. Patient has a DVT, walker, CPM, BSC and cold tx. Her will be her heavy truck driver home when she is discharged. Patient denied known discharge needs at this time. CM will continue to follow and will assist as needed with dc plans/needs. Filler Sifter Machine: Selin Morrell DCPIA - Discharge Planning Initial Assessment Updated by [email or web address]: Selin Morrell on 05/03/20 6:04 pm * Is the patient Alert and Oriented? Yes * How many steps to enter\exit or inside your home? * PCP ALAYNA * [facility]acy [facility] IN [place] * Preadmission Environment Home with Family * ADLs Independent * Equipment Bedside Commode Other Rolling Walker Shower Chair * Other Equipment DVT CPM COLD TX * List name and contact numbers for known caregivers / representatives who currently or will assist patient after discharge: [facility] ( SPOUSE) [phone] * Verbal permission to speak to the caregivers and representatives has been obtained from the patient. N/A * Community resources currently utilized None * Additional services required to return to the preadmission environment? Yes * Can the patient safely return to the preadmission environment? Yes * Has this patient been hospitalized within the prior 30 days at any hospital? No Patient Name: JACINTA CROCKER Page [phone] at 1808 All edits/amendments must be made on the electronic document DICTATION DATE: 05/03/201806 SALES RECRUITER: TABITHA 05/03/201806 RPT#: [id number] DC DATE: STATUS: ADM IN [facility] [address] [place] [address] END OF REPORT
[2020-05-03 20:00] VITALS: BP 126/65
--- NOTE | 2020-05-03 20:00 | NUR ---
ALERT RESTING IN BED CPM IN USE TOLERATING WELL, SEE SHIFT ASSESSMENT, CALL LIGHT IN REACH
[2020-05-04 04:00] VITALS: BP 106/47
[2020-05-04 06:41] LABS: BASOPHILS 0.2 % (0-2); HEMATOCRIT 36.1 % (36.0-48.0); HEMOGLOBIN 11.8 g/dL (12-16); IMMATURE GRANULOCYTES 0.3 % (0-5); LYMPHOCYTES 22.8 % (15-50); MCH 29.8 pg (26.0-34.0); MCHC 32.7 g/dL (31.0-37.0); MCV 91.2 fL (80.0-100.0); MEAN PLATELET VOLUME 10.9 fL (7.4-10.4); MONOCYTES 5.9 % (2-11); NEUTROPHILS 69.8 % (40-80); PLATELET COUNT 244 10x3/uL (130-400); RBC 3.96 10x6/uL (4.00-5.40); RDW 13.9 % (11.5-14.5); WBC 10.7 10x3/uL (4.8-10.8)
[2020-05-04 07:31] VITALS: BP 112/68
--- NOTE | 2020-05-04 07:45 | NUR ---
AWAKE AND ALERT. ORIENTED X3. NO C/O AT THIS TIME. LUNGS ARE CLEAR BILATERALLY, NO COUGH NOTED. REPORTS USING IS INSTRUCTED. SKIN IS INTACT WITHOUT REDNESS EXCEPT INCISION TO RIGHT KNEE WHICH HAS A DRY INTACT DRESSING IN PLACE. SL TO RIGHT HAND IS PATENT WITHOUT REDNESS AT INSERTION SITE. BREAKFAST SERVED IN ROOM. DENIES NEEDS.
[2020-05-04 08:21] LABS: ANION GAP 15.4 mmol/L (8-16); CALCIUM 8.4 mg/dL (8.5-10.1); CREATININE - SERUM 1.4 mg/dL (0.6-1.3); MAGNESIUM - SERUM 1.9 mg/dL (1.8-2.4); PHOSPHOROUS 4.2 mg/dL (2.5-4.9); POTASSIUM - SERUM 3.4 mmol/L (3.5-5.1)
--- NOTE | 2020-05-04 09:18 | NUR ---
UP TO BSC. VOIDED 300CC CLEAR YELLOW URINE. ENCOURAGED TO DRINK MORE WATER TODAY. ATE MOST OF BREAKFAST. DENIES NEEDS. CPM OFF AT THIS TIME.
--- NOTE | 2020-05-04 11:25 | NUR ---
UP TO BSC WITH SBA. VOIDED 300cc SLIGHTLY CLOUDY YELLOW URINE. ENCOURAGED TO DRINK MORE WATER. REQUESTED AND GIVEN 10MG OXY WITH 50MG VISTARIL PO FOR C/O LEFT KNEE PAIN LEVEL 5. WILL MONITOR.
[2020-05-04 11:41] VITALS: BP 103/49
--- NOTE | 2020-05-04 12:30 | NUR ---
ATE MOST OF LUNCH TRAY. DENIES NEEDS. NO C/O AT THIS TIME.
--- NOTE | 2020-05-04 15:15 | NUR ---
REQUESTED AND GIVEN 10MG OXY WITH 50MG VISTARIL PO FOR C/O RIGHT KNEE PAIN LEVEL 5. WILL MONITOR.
[2020-05-04 16:37] VITALS: BP 105/58
--- NOTE | 2020-05-04 16:47 | NUR ---
UP TO BSC WITH ONE PERSON SBA. VOIDED CLEAR YELLOW URINE WITHOUT DIFFICULTY. REPOSITIONED IN BED FOR COMFORT. SUPPER SERVED IN ROOM.
--- NOTE | 2020-05-04 17:48 | NUR ---
ATE ALMOST ALL OF SUPPER. UP TO BSC. VOIDED 300cc CLEAR YELLOW URINE. CPM IN PLACE AT THIS TIME. NO C/O AT THIS TIME. DENIES NEEDS.
[2020-05-04 19:50] VITALS: BP 108/46
--- NOTE | 2020-05-04 19:58 | NUR ---
ASSESSED AT THE BEGINNING OF SHIFT. PT IS ALERT AND ORIENTED, ABLE TO VERBALIZE NEEDS. SHE IS ON THE CPM MACHINE AT THIS TIME AND DOING WELL WITH NO DISTRESS.
--- NOTE | 2020-05-04 21:12 | NUR ---
CPM MACHINE HAS BEEN REMOVED FOR THE NIGHT AND PT HAS TAKEN HER NIGHT MEDS WITH MEDS FOR SLEEP AND PAIN ALSO. WE ARE ASSISTING HER UP TO THE BSC NEEDED.
--- NOTE | 2020-05-04 21:14 | NUR ---
CPM MACHINE HAS BEEN REMOVED AND PT HAS BEEN ASSISTED TO THE BSC. SHE WAS ABLE TO HAVE A BM WHICH SHE WAS NEEDING AND ALSO TOOK MIRALAX TO HELP HER. ALL NIGHT MEDS WERE TAKEN AND SHE IS RESTING QUIET WITH HER COMPANY GONE.
[2020-05-05] VITALS: BP 93/46
--- NOTE | 2020-05-05 01:10 | NUR ---
PT STATES SHE IS UNABLE TO STAY ASLEEP AND CANT GET COMFORTABLE. REQUESTED ICE PACK AND IT WAS SUPPLIED. STILL ASSISTING UP TO BSC NEEDED.
[2020-05-05 04:00] VITALS: BP 90/38
--- NOTE | 2020-05-05 05:48 | NUR ---
PT WAS PLACED ON THE CPM MACHINE AT 0530. SHE IS DOING REAL WELL WITH GETTING UP AND DOWN TO THE BSC AND USING HER GOOD LEG TO HOLD HER AFFECTED LEG. AT THIS TIME SHE IS GOING TO TRY TO GO BACK TO SLEEP UNTIL BREAKFAST
[2020-05-05 06:37] LABS: BASOPHILS 0.2 % (0-2); EOSINOPHILS 2.3 % (0-7); HEMATOCRIT 34.5 % (36.0-48.0); HEMOGLOBIN 11.2 g/dL (12-16); IMMATURE GRANULOCYTES 0.2 % (0-5); LYMPHOCYTES 19.5 % (15-50); MCH 29.5 pg (26.0-34.0); MCHC 32.5 g/dL (31.0-37.0); MCV 90.8 fL (80.0-100.0); MEAN PLATELET VOLUME 11.3 fL (7.4-10.4); MONOCYTES 7.5 % (2-11); NEUTROPHILS 70.3 % (40-80); PLATELET COUNT 253 10x3/uL (130-400); RDW 13.8 % (11.5-14.5); WBC 11.1 10x3/uL (4.8-10.8)
[2020-05-05 06:39] LABS: ANION GAP 12.3 mmol/L (8-16); CALCIUM 8.4 mg/dL (8.5-10.1); CARBON DIOXIDE 25.3 mmol/L (21.0-32.0); CREATININE - SERUM 1.3 mg/dL (0.6-1.3); MAGNESIUM - SERUM 2.2 mg/dL (1.8-2.4); PHOSPHOROUS 3.9 mg/dL (2.5-4.9); POTASSIUM - SERUM 3.6 mmol/L (3.5-5.1)
--- NOTE | 2020-05-05 08:33 | NUR ---
PT ALERT X 4. BREATH SOUNDS CLEAR BILAT. IV TO RIGHT HAND, SALINE LOCKED. CPM REMOVED. DRESSING TO RIGHT KNEE CDI. PT REPORTING PAIN OF 3/10, WILL CONTINUE TO MONITOR. BED LOW, CALL LIGHT IN REACH. NO OTHER NEEDS AT THIS TIME.
--- NOTE | 2020-05-05 12:58 | NUR ---
DISCHARGE PAPERWORK SIGNED, ALL QUESTIONS ANSWERED. IV TO RIGHT HAND DC'D, TIP INTACT. ESCORTED OUT VIA WHEELCHAIR.
== END 2020-05-05 12:59 | disposition home or self-care (01) | DRG 470 ==
LOC: D.M2 04-25 10:00 → D.SDCHOLD 05-01 05:25 → D.M3 05-01 05:25 → D.SDCHOLD 05-01 07:00 → D.M2 05-01 07:00 → D.SDCHOLD 05-01 07:15 → D.M2 05-01 10:00 → D.SDCHOLD 05-01 10:00 → D.M3 05-01 10:28
PROVIDERS: Family Medicine; ADMIT Orthopaedic Surgery; ATTEND Orthopaedic Surgery
PROC: 0SRC0J9 Replacement of Right Knee Joint with Synthetic Substitute, Cemented, Open Approach (ICD-10-PCS; principal; 2020-05-01 07:15)
DX: M17.11 Unilateral primary osteoarthritis, right knee (principal); F41.9 Anxiety disorder, unspecified; F32.9 Major depressive disorder, single episode, unspecified; M79.644 Pain in right finger(s)

== ENCOUNTER → 2020-12-17 08:33 | Outpatient (CLI) | payer MEDICAID ==
[2020-11-13 04:04] VITALS: BMI 20.5
[~2020-12-17 08:33] MED LIST changes: +AUGMENTIN 875-11 TAB PO; +ELIQUIS2.5 MG PO; +HYDROCODON-ACE1 EAC7 PO; +MIRALAX17 GM PO; +PROTONIX40 MG PO; +VISTARIL50 MG PO; +VRAYLAR3 MG PO; +ZOFRAN ODT4 MG/UDTAB PO; +[UNRECOGNIZED DRUG - OTHER] PO; +oxyCODONE IR PO
== END | disposition home or self-care (01) ==
LOC: D.US 08:33
PROVIDERS: ATTEND Family Medicine
DX: R74.8 Abnormal levels of other serum enzymes (principal)

== ENCOUNTER 2021-01-18 23:55 | Emergency (ER) | payer BC ==
[~2021-01-18] VITALS: Ht 172.7 cm; Wt 108.4 kg
[2021-01-19 00:01] VITALS: Ht 172.7 cm; Wt 108.4 kg
[2021-01-19 00:38] LABS: BASOPHILS 0.6 % (0-2); EOSINOPHILS 2.1 % (0-7); HEMATOCRIT 45.6 % (36.0-48.0); HEMOGLOBIN 15.3 g/dL (12-16); IMMATURE GRANULOCYTES 0.3 % (0-5); LYMPHOCYTE ABS# 1.85 10x3/uL (1.18-3.74); LYMPHOCYTES 19.1 % (15-50); MCH 29.8 pg (26.0-34.0); MCHC 33.6 g/dL (31.0-37.0); MCV 88.7 fL (80.0-100.0); MEAN PLATELET VOLUME 12.4 fL (7.4-10.4); NEUTROPHIL ABS# 6.99 10x3/uL (1.56-6.13); NEUTROPHILS 71.9 % (40-80); PLATELET COUNT 285 10x3/uL (130-400); RBC 5.14 10x6/uL (4.00-5.40); RDW 13.3 % (11.5-14.5); WBC 9.7 10x3/uL (4.8-10.8)
[2021-01-19 00:46] LABS: CALC OSMOLALITY 278 mosm/kg (275-300); CALCIUM 9.3 mg/dL (8.5-10.1); CARBON DIOXIDE 23.3 mmol/L (21.0-32.0); CHLORIDE - SERUM 105 mmol/L (98-107); GLUCOSE 102 mg/dL (74-106); POTASSIUM - SERUM 3.9 mmol/L (3.5-5.1); SODIUM 140 mmol/L (136-145); UREA NITROGEN 13 mg/dL (7-18); eGFR NON AFRICAN AMERICAN 62 mL/min (90-120)
[2021-01-19 00:52] LABS: BILIRUBIN NEGATIVE (NEGATIVE); KETONE NEGATIVE (NEGATIVE); NITRITE NEGATIVE (NEGATIVE); UROBILINOGEN NORMAL mg/dL (< 2)
[2021-01-19 00:56] LABS: ALBUMIN 3.8 g/dL (3.4-5.0); ALKALINE PHOSPHATASE 148 U/L (30-120); ALT (SGPT) 118 U/L (10-68); AMYLASE - SERUM 37 U/L (25-115); BILIRUBIN - TOTAL 0.71 mg/dL (0.2-1.3); LIPASE 68 U/L (73-393); PROTEIN - SERUM 7.4 g/dL (6.4-8.2); TROPONIN-I < 0.017 ng/mL (0.000-0.060)
[2021-01-19 03:30] LABS: UDS - AMPHET NEGATIVE QUAL (NEGATIVE); UDS - BARB NEGATIVE QUAL (NEGATIVE); UDS - BENZO POSITIVE QUAL (NEGATIVE); UDS - COCAINE NEGATIVE QUAL (NEGATIVE); UDS - OPIATE POSITIVE QUAL (NEGATIVE); UDS - PCP NEGATIVE QUAL (NEGATIVE); UDS - THC NEGATIVE QUAL (NEGATIVE)
[2021-01-19] MEDS ORDERED: ZOFRAN ODT4 MG/UDTAB PO (03:55)
[2021-01-19 04:33] VITALS: BP 128/77
== END 2021-01-19 04:34 | disposition home or self-care (01) ==
LOC: D.ER 23:55
PROVIDERS: Family Medicine
DX: R10.9 Unspecified abdominal pain (principal); G89.29 Other chronic pain; I10 Essential (primary) hypertension; R11.2 Nausea with vomiting, unspecified

== ENCOUNTER → 2021-01-29 09:50 | Outpatient (CLI) | payer BC ==
[2021-01-19 00:01] VITALS: BMI 20.5
== END | disposition home or self-care (01) ==
LOC: D.RAD 09:50
PROVIDERS: ATTEND Family Medicine
DX: R13.10 Dysphagia, unspecified (principal)

== ENCOUNTER → 2021-02-01 08:31 | Outpatient (CLI) | payer BC ==
[2021-01-19 00:01] VITALS: BMI 20.5
== END | disposition home or self-care (01) ==
LOC: D.MRI 08:31
PROVIDERS: ATTEND Nurse Practitioner Family
DX: M54.16 Radiculopathy, lumbar region (principal); R74.8 Abnormal levels of other serum enzymes